=== PATIENT | male | born 1935 | race Caucasian/White ===

== ENCOUNTER 2016-04-24 20:54 | Observation (INO) | payer MEDICARE, MEDICAID ==
[2016-04-24] MEDS ORDERED: Lidocaine 2% JELLY* 6 ML JELLY TOPICAL ONE (21:42)
[2016-04-24 21:54] LABS: Hematocrit 38 % (42-52); Hemoglobin 12.6 g/dl (14.0-18.0); Mean Corpuscular HGB Conc 34 g/dl (31-36); Mean Corpuscular Hemoglobin 31 pg (27-31); Mean Corpuscular Volume 92 fL (80-94); Mean Platelet Volume 8 um3 (7.4-10.4); Red Blood Count 4.08 10^6/ul (4.0-5.4); Red Cell Distribution Width 16 % (10.5-15); White Blood Count 9.6 10^3/ul (3.5-10.8)
[2016-04-24] MEDS ORDERED: oxyCODONE/Acetamin 5/325 MG* TAB PO ONE (22:01)
[2016-04-24 22:05] LABS: Urine Bilirubin Negative (Negative); Urine Glucose Negative (Negative); Urine Nitrite Negative (Negative)
[2016-04-24 22:06] LABS: Albumin 4.2 g/dL (3.2-5.2); BUN/Creatinine Ratio 18.6 (8-20); Calcium 10.4 mg/dL (8.6-10.3); EGFR African American 76.8 (>60); EGFR Non-African American 59.7 (>60); Globulin 3.3 g/dL (2-4); Potassium 3.5 mmol/L (3.5-5.0); Total Bilirubin 0.6 mg/dL (0.2-1.0); Total Protein 7.5 g/dL (6.4-8.9)
[2016-04-24] MEDS ORDERED: NS 0.9% 1000 ML* 1,000 ML IV ONE (22:19)
[2016-04-25] MEDS ORDERED: Ondansetron INJ* 2 MG/ML VIAL IV ONE (01:12)
[2016-04-25] MEDS ORDERED: Atenolol TAB* 50 MG PO ONE (01:13)
[2016-04-25 01:14] LABS: Calcium 9.5 mg/dL (8.6-10.3); EGFR African American 87.9 (>60); EGFR Non-African American 68.3 (>60); Potassium 4.2 mmol/L (3.5-5.0)
[2016-04-25] MEDS ORDERED: VENTOLIN INH PRN (02:49)
[2016-04-25] MEDS: oxyCODONE TAB* 5 MG TAB PO PRN ×2 (04:02→11:18)
[2016-04-25] MEDS: Heparin VIAL(*) 5000 UNITS/ML VIAL (FIVE THOUSAND) SUBCUT SCH ×3 (05:33→21:50)
[2016-04-25] MEDS: Atenolol TAB* 50 MG PO SCH (08:28)
[2016-04-25] MEDS: Aspirin EC Low Dose* 81 MG TAB.EC PO SCH (08:28)
--- NOTE | 2016-04-25 09:34 | HP ---
HISTORY AND PHYSICAL: DATE OF ADMISSION: 04/25/16 CHIEF COMPLAINT: Abdominal pain and inability to urinate. HISTORY OF PRESENT ILLNESS: The patient is a 80-year-old gentleman who said all of a sudden tonight he felt he had to urinate and could not, and the area of his abdomen in the suprapubic area was quite uncomfortable. The pain was significant, so he came to the ER. He has taken no new medications before this. He can't remember the last time he urinated; it may have been this morning. He does note his stream has been weaker and weaker lately. He has some chills, but no fever. He does have to get up twice at night to urinate, but takes nothing for an enlarged prostate. In the ED, the patient was cathed and found to have 800 cc of urine in his bladder. He was also found to have a lactic acidosis with lactic acid of over 5. 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 CURRENT MEDICATIONS: 1. Atenolol 50 mg daily. 2. Aspirin 81 mg daily. 3. Oxycodone 5 mg every 6 hours as needed. 4. Ventolin inhaler as directed. ALLERGIES: He has no known drug allergies. FAMILY HISTORY: Reviewed and noncontributory. SOCIAL HISTORY: Smoked tobacco for 30 years, quit many months ago. Only occasional alcohol. No recreational drug use. 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 He was 6 times, has several children, but does not know how many. His sister, Dara Prince, [phone], is his healthcare proxy. REVIEW OF SYSTEMS: A 14-point review of systems was completed with the patient ; all pertinent positives and negatives in the history of present illness otherwise is negative. PHYSICAL EXAMINATION GENERAL: A pleasant gentleman lying in bed. VITAL SIGNS: Blood pressure is 156/75, pulse ox 96%, respiratory rate 21 breaths per minute, heart rate 96 beats per minute, temperature 98.1 degrees. HEENT: Normocephalic, atraumatic. Pupils equal, round, and reactive to light. Moist mucous membranes. NECK: Supple. No JVD, bruits, palpable thyroid, or lymphadenopathy. CHEST: Clear to auscultation and percussion bilaterally. CARDIOVASCULAR: S1, S2 appreciated. ABDOMEN: Positive bowel sounds in all 4 quadrants. Soft, nontender, nondistended. EXTREMITIES: No cyanosis, clubbing, or edema. +2 peripheral pulses bilaterally. NEURO: Alert and oriented x3. Moves all extremities. SKIN: No distinct rashes or abnormalities. DIAGNOSTIC STUDIES/LAB DATA: White count 9.6, hemoglobin 12.6, hematocrit 38, platelets 291. Sodium 137, potassium 3.5, chloride 100, CO2 21, BUN 22, creatinine 1.18, glucose 98. Lactic acid 5.3, repeat is 3.4. Urinalysis is negative. ASSESSMENT AND PLAN: 1. Urinary retention: I suspect this is from benign prostatic hypertrophy. I will get a renal ultrasound to make sure there is no hydronephrosis or anything to be overly concerned about, but he may benefit from urology consult. I have started him on Flomax. We will continue his Walters. May be able to be discharged tomorrow with his Walters catheter in place and followup with urology as an outpatient. 2. Hypertension: Borderline control. Continue atenolol, and maybe adjust medications accordingly. 3. Chronic pain: Continue oxycodone. 4. Fluids, Electrolytes, Nutrition: Regular diet. 5. Deep venous thrombosis: Heparin subcu. 6. The patient is a full code. TIME SPENT: Over 75 minutes were spent on this H and P, more than 40 minutes of which were spent in direct [id number] contact with the patient in evaluation, physical exam, and counseling and coordination of care. CC: Dr. Maier * [id number]/[facility] #: [id number] MTDD
--- NOTE | 2016-04-25 10:52 | RAD ---
HISTORY: Urinary retention COMPARISONS: None TECHNIQUE: Multiple transverse and longitudinal ultrasound images were obtained of the kidneys using grayscale and color Doppler imaging. FINDINGS: RIGHT KIDNEY: The right kidney is normal in shape, size, contour, and echogenicity. There is no hydronephrosis or nephrolithiasis. The right kidney measures 9.8 x 4.8 x 5 cm. LEFT KIDNEY: The left kidney is normal in shape, size, contour, and echogenicity. There is no hydronephrosis or nephrolithiasis. The left kidney measures 10.1 x 5.3 x 4.5 cm. BLADDER: No images are submitted of the bladder. AORTA AND IVC: No images are submitted of the vasculature. RETROPERITONEUM: Unremarkable. OTHER: None. IMPRESSION: NO HYDRONEPHROSIS OR NEPHROLITHIASIS.
[2016-04-25] MEDS ORDERED: NS 0.9% 1000 ML* 1,000 ML IV ONE (16:59)
[2016-04-25] MEDS ORDERED: Calcium Carbonate CHEW TAB* 500 MG (TUMS) PO PRN (19:00)
[2016-04-25] MEDS ORDERED: Tamsulosin CAP* 0.4 MG PO SCH (21:00)
[2016-04-25] MEDS ORDERED: Ondansetron INJ* 2 MG/ML VIAL IV PRN (23:10)
[2016-04-25] MEDS ORDERED: Albuterol HFA INHALER* 8 gm MDI INH PRN (23:13)
[2016-04-26] MEDS: Heparin VIAL(*) 5000 UNITS/ML VIAL (FIVE THOUSAND) SUBCUT SCH (06:03)
[2016-04-26 07:17] LABS: BUN/Creatinine Ratio 20.6 (8-20); Calcium 8.5 mg/dL (8.6-10.3); EGFR African American 71.2 (>60); EGFR Non-African American 55.4 (>60); Potassium 3.8 mmol/L (3.5-5.0)
[2016-04-26 07:54] VITALS: BP 111/45
[2016-04-26] MEDS: Atenolol TAB* 50 MG PO SCH (08:44)
[2016-04-26] MEDS: oxyCODONE TAB* 5 MG TAB PO PRN (08:44)
[2016-04-26] MEDS: Aspirin EC Low Dose* 81 MG TAB.EC PO SCH (08:44)
--- NOTE | 2016-04-26 09:10 | PN ---
Hospitalist Progress Note . HOSPITALIST DISCHARGE NOTE: See dc instructions and summary by me. Patient stable for dc dc instructions reviewed with the patient at the bedside. DC patient home today.
--- NOTE | 2016-04-28 05:56 | DS ---
DISCHARGE SUMMARY: DATE OF ADMISSION: 04/25/16 DATE OF DISCHARGE: 04/26/16 STATUS DURING HOSPITALIZATION: Observation. PRIMARY CARE PROVIDER: Dr. Sameer Maier. DISCHARGE INSTRUCTIONS: With followup appointment 05/01/16 at 11:30 a.m. and also follow up with Dr. Arturo Albert or Dr. Robert Lee, on 04/28/16 , as communicated to the the patient. PRINCIPAL DISCHARGE DIAGNOSES: Urinary retention with the inability to urinate with nearly 2 L urinary retention and requirement for indwelling Walters catheter as well as constipation. SECONDARY DIAGNOSES: 1. History of right cheek melanoma. 2. Hypertension. 3. Chronic obstructive pulmonary disease. 4. Right tear duct cancer. DISCHARGE MEDICATION REGIMEN: 1. Flomax 0.4 mg by mouth at bedtime (rx given) 2. Docusate 100 mg by mouth twice daily as needed for constipation (rx given). 3. Senokot 1 tab by mouth once daily at bedtime (rx given) 4. Atenolol 50 mg by mouth daily. 5. Aspirin 81 mg by mouth daily. 6. Oxycodone/Roxicodone 5 mg by mouth every 6 hours as needed, not to exceed 20 mg per day. 7. Ventolin 2 puffs every 4 to 6 hours as needed for shortness of breath. HISTORY OF PRESENT ILLNESS AND HOSPITAL COURSE: Please see the H and P by Dr. Bryce Bauer on 04/25/16. In brief, Mr. Prince is a 80-year-old gentleman who felt the urge to urinate but could not and in the area below his belly button felt pain and a swollen bladder. The patient came to the emergency room and could not report the last time he urinated. He did note that his urine stream was weaker and weaker lately. The patient was cath'd and had well over 1000 mL of urine returned and within the first hour from placement, drained a total of 1650 mL. The patient continued to have abdominal pain and he was placed on observation status after his initial lactic acid was 5.3. His initial anion gap was 1.6 and his creatinine was 1.18. The patient was mildly hypercalcemic at 10.4 and there was concern that he might experience postobstructive diuresis , such that his in's and out's needed to be carefully measured. The patient was placed on observation status. He only made normal amounts of urine that were maintainable with oral intake. The patient only complained additionally of constipation and so a laxative and a stool softener were prescribed. The patient is being discharged with an indwelling Walters for urology followup and likely office urodynamic testing. The patient is being discharged in stable condition on 04/26/16 with a urology followup on 04/28/16, and primary care followup on the . Again, the patient was started on Flomax and this was prescribed in addition to his stool softener and laxative. He was given return to ED instructions, if he experiences any difficulty with his Walters catheter or any other concerning signs or symptoms, then he is to come back and be re-evaluated. He said he would comply with that instruction. TIME SPENT: Total time taken to discharge Mr. Prince was 40 minutes. Greater than half that time spent giving him information about Walters catheterization and the likely course of events with his urinary obstruction and need for urology followup. CONDITION AT DISCHARGE: Stable. [id number]/[facility] #: [id number] PREETI
--- NOTE | 2016-05-10 20:39 | ED ---
Arlet Canseco Anna, scribed for Garry De Jesus MD on 04/24/16 at 2204 . GI/ HPI - HPI Summary HPI Summary: Patient is a 80 y/o male coming to [facility] presenting with an inability to urinate. He previously had abdominal pain, but this was alleviated following the use of a catheter in the ED. He has had no BM for 3 days, which is baseline for him on oxycodone, which he takes for his shoulder. Before his catheterization, he last urinated this morning. He describes the severity of his pain prior to the catheterization as 10/10. This has since resolved. He has SOB at baseline. Denies CP. He denies knowledge of prostate problems. He has never seen a urologist. - History of Current Complaint Chief Complaint: EDAbdPain Time Seen by Provider: 04/24/16 21:10 Stated Complaint: ABD PAIN Hx Obtained From: Patient Pain Intensity: 10 - Additional Pertinent History Primary Care Physician: HANNAH - Allergy/Home Medications Allergies/Adverse Reactions: Allergies Allergy/AdvReac Type Severity Reaction Status Date / Time No Known Allergies Allergy Verified 04/24/16 21:16 Home Medications: Home Medications Ventolin HFA Inhaler* INH DAILY 04/24/16 [History] PMH/Surg Hx/FS Hx/Imm Hx Cardiovascular History: Reports: Hx Hypertension Denies: Hx Pacemaker/ICD Respiratory History: Reports: Hx Chronic Obstructive Pulmonary Disease (COPD) Musculoskeletal History: Reports: Hx Orthopedic Injury - right rotator cuff tear Sensory History: Reports: Hx Hearing Problem - ANIAK Denies: Hx Hearing Aid Psychiatric History: Denies: Hx Panic Disorder - Cancer History Cancer Type, 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 - Surgical History Surgery Procedure, Year, and Place: DOUBLE HERNIA; MELONOMA-FACIAL Hx Anesthesia Reactions: No - Immunization History Date of Tetanus Vaccine: unk Date of Influenza Vaccine: unk Infectious Disease History: No Infectious Disease History: Denies: Traveled Outside the [place] in Last 30 Days - Family History Known Family History: Negative: Diabetes - Social History Occupation: Retired Alcohol Use: Daily Alcohol Amount: 1 daily Substance Use Type: Reports: None, Prescribed Substance Use Comment - Amount & Last Used: BID x long time Smoking Status (MU): Former Smoker Type: Cigarettes Amount Used/How Often: 1/2 PPD Length of Time of Smoking/Using Tobacco: 55 YEARS Have You Smoked in the Last Year: No Review of Systems Negative: Chest Pain Positive: Shortness Of Breath - baseline Positive: Abdominal Pain - resolved. Negative: Vomiting, Nausea Genitourinary: Other - Inability to urinate. Positive: other - Constipation, baseline. Negative: dysuria, hematuria Negative: Myalgia, Edema Negative: Rash Neurological: Other - Denies dizziness All Other Systems Reviewed And Are Negative: Yes Physical Exam - Summary Physical Exam Summary: Constitutional: Well-developed, Well-nourished, Alert. (-) Distressed Skin: Warm, Dry HENT: Normocephalic; Atraumatic Eyes: Conjunctiva normal Neck: Musculoskeletal ROM normal neck. (-) JVD, (-) Stridor, (-) Tracheal deviation Cardio: Rhythm regular, rate normal, Heart sounds normal; Intact distal pulses; The pedal pulses are 2+ and symmetric. Radial pulses are 2+ and symmetric. ~(-) Murmur Pulmonary/Chest wall: Effort normal. (-) Respiratory distress, (-) Wheezes, (-) Rales Abd: Soft, (-) Tenderness, ~(-) Distension, (-) Guarding, (-) Rebound Musculoskeletal: (-) Edema Lymph: (-) Cervical adenopathy Neuro: Alert, Oriented x3. Lower extremity strength intact. Distal sensation intact. Psych: Mood and affect Normal Triage Information Reviewed: Yes Vital Signs On Initial Exam: Initial Vitals Temp Pulse Resp BP Pulse Ox 97.3 F 95 16 208/113 99 04/24/16 21:10 04/24/16 21:10 04/24/16 21:10 04/24/16 21:10 04/24/16 21:10 Vital Signs Reviewed: Yes - Christi Coma Scale Coma Scale Total: 15 Diagnostics - Vital Signs Vital Signs Temp Pulse Resp BP Pulse Ox 04/24/16 21:10 97.3 F 95 16 208/113 99 - Laboratory Lab Results: Lab Results 04/24/16 Range/Units 21:15 WBC 9.6 (3.5-10.8) 10^3/ul RBC 4.08 (4.0-5.4) 10^6/ul Hgb 12.6 L (14.0-18.0) g/dl Hct 38 L (42-52) % MCV 92 (80-94) fL MCH 31 (27-31) pg MCHC 34 (31-36) g/dl RDW 16 H (10.5-15) % Plt Count 291 (150-450) 10^3/ul MPV 8 (7.4-10.4) um3 Neut % (Auto) 83.4 H (38-83) % Lymph % (Auto) 10.4 L (25-47) % [place] % (Auto) 4.6 (1-9) % Eos % (Auto) 0.7 (0-6) % Baso % (Auto) 0.9 (0-2) % Absolute Neuts (auto) 8.0 H (1.5-7.7) 10^3/ul Absolute Lymphs (auto) 1.0 (1.0-4.8) 10^3/ul Absolute Monos (auto) 0.4 (0-0.8) 10^3/ul Absolute Eos (auto) 0.1 (0-0.6) 10^3/ul Absolute Basos (auto) 0.1 (0-0.2) 10^3/ul Absolute Nucleated RBC 0.01 10^3/ul Nucleated RBC % 0.1 Result Diagrams: 04/24/16 21:15 04/24/16 21:15 Lab Statement: Any lab studies that have been ordered have been reviewed, and results considered in the medical decision making process. Re-Evaluation - Re-Evaluation First Eval Re-Evaluation Time: 01:12 Change: Unchanged Comment: Patient feels nauseous and too sick to go home. GIGU Course/Dx - Course Assessment/Plan: Patient is a 80 y/o male coming to [facility] presenting with an inability to urinate. He previously had abdominal pain, but this was alleviated following the use of a catheter in the ED. He has had no BM for 3 days, which is baseline for him on oxycodone, which he takes for his shoulder. Before his catheterization, he last urinated this morning. He describes the severity of his pain prior to the catheterization as 10/10. This has since resolved. He has SOB at baseline. Denies CP. He denies knowledge of prostate problems. He has never seen a urologist. Labs reveal a lactic acid of 5.3. UA is unremarkable. Repeat lab reveals lactic acid of 3.4. Upon re-evaluation, patient feels nauseous and too sick to go home. Discussed patient with Dr. Bauer, who agrees to admit patient. - Diagnoses Provider Diagnoses: Acute urinary retention, Lactic acidosis, Dehydration, Uncontrolled hypertension - Physician Notifications Discussed Care Of Patient With: Dr. Bauer (hospitalist) at 0115. Agrees to accept patient for admission. Discharge - Discharge Plan Condition: Stable Disposition: ADMITTED TO [facility] Referrals: Saul Acosta MD [Primary Care Provider] - The documentation as recorded by the Arlet matamoros Anna accurately reflects the service I personally performed and the decisions made by me, Garry De Jesus MD.
== END 2016-04-26 12:25 | disposition home or self-care (01) ==
LOC: ED 20:54 → MED 04-25 02:42
PROVIDERS: ADMIT Internal Medicine; ATTEND Internal Medicine
DX: R33.9 Retention of urine, unspecified (principal); K59.00 Constipation, unspecified; G89.29 Other chronic pain; Z85.820 Personal history of malignant melanoma of skin; J44.9 Chronic obstructive pulmonary disease, unspecified; C69.91 Malignant neoplasm of unspecified site of right eye; Z79.899 Other long term (current) drug therapy; Z87.891 Personal history of nicotine dependence
CPT/HCPCS: 36415; 76775; 80048; 80053; 81003; 83605; 83690; 85025; 96361; 96372; 96374; 99285; A9270-GY; G0378; G8978-GP-CH; G8979-GP-CH; G8980-GP-CH; J1644; J2405

== ENCOUNTER 2016-09-03 23:15 | Emergency (ER) | payer MEDICARE, MEDICAID ==
[2016-09-03] MEDS ORDERED: methylPREDNISolone 125 MG* 2 ML VIAL IV ONE (23:20)
[2016-09-03] MEDS ORDERED: NS 0.9% 1000 ML* 1,000 ML IV ONE (23:20)
[2016-09-03] MEDS ORDERED: Albuterol/Ipratropium NEB.SOL* Albuterol 2.5 MG/Ipratropium 0.5 MG 3 ML INH ONE (23:20)
[2016-09-03 23:43] LABS: Hematocrit 40 % (42-52); Hemoglobin 13.4 g/dl (14.0-18.0); Mean Corpuscular HGB Conc 33 g/dl (31-36); Mean Corpuscular Hemoglobin 30 pg (27-31); Mean Corpuscular Volume 91 fL (80-94); Mean Platelet Volume 8 um3 (7.4-10.4); Red Blood Count 4.42 10^6/ul (4.0-5.4); Red Cell Distribution Width 17 % (10.5-15); White Blood Count 8.8 10^3/ul (3.5-10.8)
--- NOTE | 2016-09-03 23:49 | ED ---
West Canseco Rebecca, scribed for Yunior Yarbrough MD on 09/03/16 at 2321 . Shortness of Breath - HPI Summary HPI Summary: Pt is a 80 y/o M BIBA who presents to ED c/o acute on chronic SOB. SOB is characterized as moderate dyspnea at rest and worsened yesterday. Sx aggravated and alleviated by nothing. Pt reports he ran out of his albuterol inhaler. PMHx COPD. SHx former smoker. Is unsure of when he was last seen by his PCP. - History of Current Complaint Chief Complaint: EDShortnessOfBreath Hx Obtained From: Patient Onset/Duration: Still Present, Worse Since - Yesterday Current Severity: Moderate Dyspnea At: Rest Aggrevating Factors: Nothing Alleviating Factors: Nothing Associated Signs & Symptoms: Negative - Allergy/Home Medications Allergies/Adverse Reactions: Allergies Allergy/AdvReac Type Severity Reaction Status Date / Time No Known Allergies Allergy Verified 04/24/16 21:16 PMH/Surg Hx/FS Hx/Imm Hx Cardiovascular History: Reports: Hx Hypertension Denies: Hx Pacemaker/ICD Respiratory History: Reports: Hx Chronic Obstructive Pulmonary Disease (COPD) Musculoskeletal History: Reports: Hx Orthopedic Injury - right rotator cuff tear Sensory History: Reports: Hx Hearing Problem - TYONEK Denies: Hx Hearing Aid Psychiatric History: Denies: Hx Panic Disorder - Cancer History Cancer Type, 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 - Surgical History Surgery Procedure, Year, and Place: DOUBLE HERNIA; MELONOMA-FACIAL Hx Anesthesia Reactions: No - Immunization History Date of Tetanus Vaccine: unk Date of Influenza Vaccine: unk - Family History Known Family History: Negative: Diabetes - Social History Alcohol Use: Daily Alcohol Amount: 1 daily Substance Use Type: Reports: None, Prescribed Substance Use Comment - Amount & Last Used: BID x long time Smoking Status (MU): Former Smoker Type: Cigarettes Amount Used/How Often: 1/2 PPD Length of Time of Smoking/Using Tobacco: 55 YEARS Have You Smoked in the Last Year: No Review of Systems Negative: Fever Positive: Shortness Of Breath - acute on chronic All Other Systems Reviewed And Are Negative: Yes Physical Exam Triage Information Reviewed: Yes Vital Signs On Initial Exam: Initial Vitals Temp Pulse Resp BP Pulse Ox 97.6 F 110 20 148/98 97 09/03/16 23:17 09/03/16 23:17 09/03/16 23:17 09/03/16 23:17 09/03/16 23:17 Vital Signs Reviewed: Yes Appearance: Positive: No Pain Distress, Thin Skin: Positive: Warm Head/Face: Positive: Normal Head/Face Inspection Eyes: Positive: MIKE ENT: Positive: Hearing grossly normal Neck: Positive: Supple Respiratory/Lung Sounds: Positive: Decreased Breath Sounds, Wheezes - scattered bilat exp wheezes with prolonged expiration Cardiovascular: Positive: RRR Abdomen Description: Positive: Nontender, Soft Bowel Sounds: Positive: Present Musculoskeletal: Positive: Strength/ROM Intact Neurological: Positive: Alert, Oriented to Person Place, Time Psychiatric: Positive: Affect/Mood Appropriate Diagnostics - Vital Signs Vital Signs Temp Pulse Resp BP Pulse Ox 09/03/16 23:26 111 19 99 09/03/16 23:17 97.6 F 110 20 148/98 97 - Laboratory Lab Results: Lab Results 09/03/16 Range/Units 11:27 WBC 8.8 (3.5-10.8) 10^3/ul RBC 4.42 (4.0-5.4) 10^6/ul Hgb 13.4 L (14.0-18.0) g/dl Hct 40 L (42-52) % MCV 91 (80-94) fL MCH 30 (27-31) pg MCHC 33 (31-36) g/dl RDW 17 H (10.5-15) % Plt Count 222 (150-450) 10^3/ul MPV 8 (7.4-10.4) um3 Neut % (Auto) 69.5 (38-83) % Lymph % (Auto) 14.5 L (25-47) % Castro % (Auto) 6.3 (1-9) % Eos % (Auto) 8.8 H (0-6) % Baso % (Auto) 0.9 (0-2) % Absolute Neuts (auto) 6.1 (1.5-7.7) 10^3/ul Absolute Lymphs (auto) 1.3 (1.0-4.8) 10^3/ul Absolute Monos (auto) 0.6 (0-0.8) 10^3/ul Absolute Eos (auto) 0.8 H (0-0.6) 10^3/ul Absolute Basos (auto) 0.1 (0-0.2) 10^3/ul Absolute Nucleated RBC 0 10^3/ul Nucleated RBC % 0 Result Diagrams: 09/03/16 11:27 09/03/16 11:27 Lab Statement: Any lab studies that have been ordered have been reviewed, and results considered in the medical decision making process. - Radiology CXR Xray Interpretation: No Acute Changes Radiology Interpretation Completed By: ED Physician - EKG 2275 Cardiac Rate: Tachycardia - 104 bpm EKG Rhythm: Sinus Tachycardia EKG Interpretation: No STEMI Re-Evaluation - Re-Evaluation First Eval Re-Evaluation Time: 01:16 Change: Improved Comment: Discussed D/C plan with the pt. Course/Dx - Course Assessment/Plan: Pt is a 80 y/o M BIBA who presents to ED c/o acute on chronic SOB, characterized as dyspnea at rest, that worsened yesterday. Pt reports he ran out of his albuterol inhaler. PMHx COPD. SHx former smoker. EKG reveals isnus tachycardia with no STEMI. CXR reveals no acute findings. Pt will be D/C to home with Dx of COPD exacerbation. He understands and agrees. - Diagnoses Provider Diagnoses: COPD exacerbation Discharge - Discharge Plan Condition: Stable Disposition: HOME Prescriptions: predniSONE TAB* [Deltasone TAB*] 40 mg PO DAILY #8 tab Patient Education Materials: COPD (Chronic Obstructive Pulmonary Disease) (ED) Referrals: Sameer Maier MD [Primary Care Provider] - 3 Days The documentation as recorded by the West matamoros Rebecca accurately reflects the service I personally performed and the decisions made by me, Yunior Yarbrough MD.
[2016-09-03 23:55] LABS: Albumin 4.2 g/dL (3.2-5.2); BUN/Creatinine Ratio 26.7 (8-20); Calcium 9.3 mg/dL (8.6-10.3); EGFR African American 65.7 (>60); EGFR Non-African American 51.1 (>60); Globulin 3.4 g/dL (2-4); Total Bilirubin 0.4 mg/dL (0.2-1.0); Total Protein 7.6 g/dL (6.4-8.9)
[2016-09-04 01:18] VITALS: BP 152/84
[2016-09-04] MEDS ORDERED: Albuterol HFA INHALER* 8 gm MDI INH ONE ×2 (01:24→01:26)
--- NOTE | 2016-09-04 07:25 | RAD ---
INDICATION: Shortness of breath. COMPARISON: Comparison is made with prior chest x-ray studies from October 19, 2012 and May 27, 2015. TECHNIQUE: Dual-energy PA and lateral views of the chest were obtained. FINDINGS: The heart is within normal limits in size. Mediastinal and hilar contours appear within normal limits. The lungs are hyperinflated. There are small nodular densities which project above both lung bases which are unchanged from the exam from 2012 and likely represent nipple shadows. There is also a small calcified nodule which projects at the right lung base suggestive of old granulomatous disease which is also unchanged. The lungs are otherwise clear. No pleural effusion is seen. There is pectus excavatum deformity. IMPRESSION: FINDINGS CONSISTENT WITH COPD AND OLD GRANULOMATOUS DISEASE, NO EVIDENCE FOR ACUTE FINDING.
== END 2016-09-04 13:34 | disposition home or self-care (01) ==
LOC: ED 23:15
DX: R06.02 Shortness of breath (principal); Z86.79 Personal history of other diseases of the circulatory system; Z87.891 Personal history of nicotine dependence
CPT/HCPCS: 36415; 71020; 80053; 83605; 85025; 93005; 94640; 99283; A9270-GY; J2930

== ENCOUNTER 2016-09-05 17:49 | Inpatient (IN) | payer MEDICARE, MEDICAID ==
[2016-09-05] MEDS ORDERED: Acetaminophen TAB* 325 MG PO ONE (18:09)
[2016-09-05] MEDS ORDERED: cefTRIAXone(*) 1 GM in NS 0.9% 50 ML* 50 ML IVPB ONE (18:20)
[2016-09-05] MEDS ORDERED: Azithromycin IV(*) 500 MG in NS 0.9% 250 ML* 250 ML IVPB ONE (18:20)
[2016-09-05 18:30] LABS: Hematocrit 36 % (42-52); Hemoglobin 11.7 g/dl (14.0-18.0); Mean Corpuscular HGB Conc 33 g/dl (31-36); Mean Corpuscular Hemoglobin 30 pg (27-31); Mean Corpuscular Volume 92 fL (80-94); Mean Platelet Volume 8 um3 (7.4-10.4); Red Blood Count 3.88 10^6/ul (4.0-5.4); Red Cell Distribution Width 16 % (10.5-15); White Blood Count 12.3 10^3/ul (3.5-10.8)
[2016-09-05] MEDS: NS 0.9% 1000 ML* 2,000 ML IV ONE (18:35)
[2016-09-05 18:47] LABS: Albumin 3.5 g/dL (3.2-5.2); BUN/Creatinine Ratio 29.7 (8-20); C Reactive Protein 15.78 mg/L (< 5.00); Calcium 8.6 mg/dL (8.6-10.3); EGFR African American 103.6 (>60); EGFR Non-African American 80.6 (>60); Globulin 2.8 g/dL (2-4); Potassium 3.5 mmol/L (3.5-5.0); Total Bilirubin 0.5 mg/dL (0.2-1.0); Total Protein 6.3 g/dL (6.4-8.9)
[2016-09-05 18:48] LABS: Troponin I 0.02 ng/mL (<0.04)
--- NOTE | 2016-09-05 18:55 | RAD ---
Indication: Recent onset shortness of breath/chest tightness. Chronic obstructive pulmonary disease. Comparison: September 03, 2016 Technique: Upright AP 1833 hours Report: Elevated lung volumes and rarefaction of the interstitial markings. Airspace consolidation at the medial RIGHT lower lung zone which may involve the RIGHT middle lobe or RIGHT lower lobe. Negative for pleural effusion or pneumothorax. The heart, pulmonary vasculature, and mediastinal contours are unremarkable. IMPRESSION: 1. Airspace consolidation at the medial RIGHT lower lung zone most consistent with pneumonia given absence of volume loss to favor atelectasis. 2. Stigmata of chronic obstructive pulmonary disease and emphysema.
[2016-09-05] MEDS ORDERED: methylPREDNISolone 125 MG* 2 ML VIAL IV ONE (19:33)
[2016-09-05] MEDS ORDERED: Albuterol 2.5 MG/3 ML NEB.SOL* (0.083%) INH PRN (19:33)
[2016-09-05] MEDS ORDERED: oxyCODONE TAB* 5 MG TAB PO PRN (19:37)
[2016-09-05] MEDS ORDERED: NS 0.9% 1000 ML* 1,000 ML IV SCH (19:45)
[2016-09-05] MEDS: Albuterol/Ipratropium NEB.SOL* Albuterol 2.5 MG/Ipratropium 0.5 MG 3 ML INH SCH ×2 (19:52→23:24)
[2016-09-05 20:10] LABS: Urine Bacteria Absent (Absent); Urine Bilirubin Negative (Negative); Urine Glucose Negative (Negative); Urine Nitrite Negative (Negative)
--- NOTE | 2016-09-05 20:12 | ED ---
Cortney Canseco Alok, scribed for Paul Rapp MD on 09/05/16 at 1827 . Shortness of Breath - HPI Summary HPI Summary: 80M presents to the ED BIBA with SOB and productive cough for the last 3-4 days as well as a fever since this afternoon. Pt was given a duo nebulizer by EMS [employer]. Pt also notes PORTER. Pt denies chills, vomit, or abd pain. Pt denies difficulty urinating or rash. PMHx includes COPD. Pt is a former tobacco smoker and drinks ETOH daily. - History of Current Complaint Chief Complaint: EDShortnessOfBreath Time Seen by Provider: 09/05/16 18:06 Hx Obtained From: Patient Onset/Duration: Lasting Days, Still Present, Worse Since - Today Timing: Constant Current Severity: Moderate Dyspnea At: Rest Aggrevating Factors: Nothing Alleviating Factors: Nothing Associated Signs & Symptoms: Cough (Productive), Fever - Allergy/Home Medications Allergies/Adverse Reactions: Allergies Allergy/AdvReac Type Severity Reaction Status Date / Time No Known Allergies Allergy Verified 04/24/16 21:16 Home Medications: Home Medications Albuterol Sulfate [Proair Respiclick] 2 puff INH QID PRN 09/05/16 [History Confirmed 09/05/16] Aspirin EC Low Dose* [Ecotrin EC Low Dose 81 MG*] 81 mg PO DAILY 09/05/16 [ History Confirmed 09/05/16] Tamsulosin CAP* [Flomax CAP*] 0.4 mg PO DAILY 09/05/16 [History Confirmed ] Tiotropium CAP.INH* [Spiriva CAP.INH*] 1 cap.inh INH DAILY 09/05/16 [History Confirmed 09/05/16] oxyCODONE TAB* [Roxycodone TAB 5 mg*] 5 - 10 mg PO Q8HR PRN MDD 30 mg 09/05/16 [ History Confirmed 09/05/16] PMH/Surg Hx/FS Hx/Imm Hx Cardiovascular History: Reports: Hx Hypertension Denies: Hx Pacemaker/ICD Respiratory History: Reports: Hx Chronic Obstructive Pulmonary Disease (COPD) Musculoskeletal History: Reports: Hx Orthopedic Injury - right rotator cuff tear Sensory History: Reports: Hx Hearing Problem - [place] Denies: Hx Hearing Aid Psychiatric History: Denies: Hx Panic Disorder - Cancer History Cancer Type, 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 - Surgical History Surgery Procedure, Year, and Place: DOUBLE HERNIA; MELONOMA-FACIAL Hx Anesthesia Reactions: No - Immunization History Date of Tetanus Vaccine: unk Date of Influenza Vaccine: unk Infectious Disease History: No Infectious Disease History: Denies: Traveled Outside the [place] in Last 30 Days - Family History Known Family History: Negative: Diabetes - Social History Occupation: Retired Alcohol Use: Daily Alcohol Amount: 1 daily Substance Use Type: Reports: None, Prescribed Substance Use Comment - Amount & Last Used: BID x long time Smoking Status (MU): Former Smoker Type: Cigarettes Amount Used/How Often: 1/2 PPD Length of Time of Smoking/Using Tobacco: 55 YEARS Have You Smoked in the Last Year: No Review of Systems Positive: Fever. Negative: Chills Positive: Shortness Of Breath, Cough Negative: Abdominal Pain, Vomiting Genitourinary: Other - Negative: Difficulty urinating Negative: Rash Positive: Headache All Other Systems Reviewed And Are Negative: Yes Physical Exam - Summary Physical Exam Summary: The patient is ill-appearing and cachectic. The skin is warm and dry and skin color pale. HEENT: The head is normocephalic and atraumatic. The pupils are equal and reactive. The conjunctivae are clear and without drainage. Nares are patent and without drainage. Mouth reveals dry mucous membranes and the throat is without erythema and exudate. Neck is supple with full range of motion and non-tender. There are no carotid bruits. There is no neck vein distension. Respiratory: Chest is non-tender. Left lung base rales with decreased breath sounds throughout. Cardiovascular: Heart rate is fast and regular. There is no murmur or rub auscultated. There is no peripheral edema and pulses are symmetrical and equal. Abdomen: The abdomen is soft and non-tender. There are normal bowel sounds heard in all four quadrants and there is no organomegaly palpated. Musculoskeletal: There is no back pain noted. Extremities are non-tender with full range of motion. Capillary refill 3 seconds. There is no peripheral edema or calf tenderness elicited. Neurological: Patient is alert and oriented to person, place and time. The patient has symmetrical motor strength in all four extremities. Cranial nerves are grossly intact. Deep tendon reflexes are symmetrical and equal in all four extremities. Psychiatric: The patient has an appropriate affect and does not exhibit any anxiety or depression. Triage Information Reviewed: Yes Vital Signs On Initial Exam: Initial Vitals Temp Pulse Resp BP Pulse Ox 102.7 F 130 22 160/93 94 09/05/16 17:51 09/05/16 17:51 09/05/16 17:51 09/05/16 17:51 09/05/16 17:51 Vital Signs Reviewed: Yes Diagnostics - Vital Signs Vital Signs Temp Pulse Resp BP Pulse Ox 09/05/16 17:51 102.7 F 130 22 160/93 94 - Laboratory Lab Results: Lab Results 09/05/16 09/05/16 09/05/16 Range/Units 18:20 18:20 18:20 WBC 12.3 H (3.5-10.8) 10^3/ul RBC 3.88 L (4.0-5.4) 10^6/ul Hgb 11.7 L (14.0-18.0) g/dl Hct 36 L (42-52) % MCV 92 (80-94) fL MCH 30 (27-31) pg MCHC 33 (31-36) g/dl RDW 16 H (10.5-15) % Plt Count 189 (150-450) 10^3/ul MPV 8 (7.4-10.4) um3 Neut % (Auto) 88.9 H (38-83) % Lymph % (Auto) 4.7 L (25-47) % [place] % (Auto) 3.7 (1-9) % Eos % (Auto) 2.4 (0-6) % Baso % (Auto) 0.3 (0-2) % Absolute Neuts (auto) 10.9 H (1.5-7.7) 10^3/ul Absolute Lymphs (auto) 0.6 L (1.0-4.8) 10^3/ul Absolute Monos (auto) 0.5 (0-0.8) 10^3/ul Absolute Eos (auto) 0.3 (0-0.6) 10^3/ul Absolute Basos (auto) 0 (0-0.2) 10^3/ul Absolute Nucleated RBC 0.01 10^3/ul Nucleated RBC % 0.1 INR (Anticoag Therapy) 0.86 L (0.89-1.11) APTT 25.6 L (26.0-36.3) seconds Sodium 139 (133-145) mmol/L Potassium 3.5 (3.5-5.0) mmol/L Chloride 105 (101-111) mmol/L Carbon Dioxide 25 (22-32) mmol/L Anion Gap 9 (2-11) mmol/L BUN 27 H (6-24) mg/dL Creatinine 0.91 (0.67-1.17) mg/dL Est GFR ( Amer) 103.6 (>60) Est GFR (Non-Af Amer) 80.6 (>60) BUN/Creatinine Ratio 29.7 H (8-20) Glucose 85 (70-100) mg/dL Lactic Acid (0.5-2.0) mmol/L Calcium 8.6 (8.6-10.3) mg/dL Total Bilirubin 0.50 (0.2-1.0) mg/dL AST 20 (13-39) U/L ALT 9 (7-52) U/L Alkaline Phosphatase 49 (34-104) U/L Troponin I 0.02 (<0.04) ng/mL C-Reactive Protein 15.78 H (< 5.00) mg/L Total Protein 6.3 L (6.4-8.9) g/dL Albumin 3.5 (3.2-5.2) g/dL Globulin 2.8 (2-4) g/dL Albumin/Globulin Ratio 1.3 (1-3) 09/05/ Range/Units 18:20 WBC (3.5-10.8) 10^3/ul RBC (4.0-5.4) 10^6/ul Hgb (14.0-18.0) g/dl Hct (42-52) % MCV (80-94) fL MCH (27-31) pg MCHC (31-36) g/dl RDW (10.5-15) % Plt Count (150-450) 10^3/ul MPV (7.4-10.4) um3 Neut % (Auto) (38-83) % Lymph % (Auto) (25-47) % [place] % (Auto) (1-9) % Eos % (Auto) (0-6) % Baso % (Auto) (0-2) % Absolute Neuts (auto) (1.5-7.7) 10^3/ul Absolute Lymphs (auto) (1.0-4.8) 10^3/ul Absolute Monos (auto) (0-0.8) 10^3/ul Absolute Eos (auto) (0-0.6) 10^3/ul Absolute Basos (auto) (0-0.2) 10^3/ul Absolute Nucleated RBC 10^3/ul Nucleated RBC % INR (Anticoag Therapy) (0.89-1.11) APTT (26.0-36.3) seconds Sodium (133-145) mmol/L Potassium (3.5-5.0) mmol/L Chloride (101-111) mmol/L Carbon Dioxide (22-32) mmol/L Anion Gap (2-11) mmol/L BUN (6-24) mg/dL Creatinine (0.67-1.17) mg/dL Est GFR ( Amer) (>60) Est GFR (Non-Af Amer) (>60) BUN/Creatinine Ratio (8-20) Glucose (70-100) mg/dL Lactic Acid 2.7 H* (0.5-2.0) mmol/L Calcium (8.6-10.3) mg/dL Total Bilirubin (0.2-1.0) mg/dL AST (13-39) U/L ALT (7-52) U/L Alkaline Phosphatase (34-104) U/L Troponin I (<0.04) ng/mL C-Reactive Protein (< 5.00) mg/L Total Protein (6.4-8.9) g/dL Albumin (3.2-5.2) g/dL Globulin (2-4) g/dL Albumin/Globulin Ratio (1-3) Result Diagrams: 09/05/16 18:20 09/05/16 18:20 Lab Statement: Any lab studies that have been ordered have been reviewed, and results considered in the medical decision making process. - Radiology CXR Xray Interpretation: Positive (See Comments) - IMPRESSION: 1. Airspace consolidation at the medial RIGHT lower lung zone most consistent with pneumonia given absence of volume loss to favor atelectasis. 2. Stigmata of chronic obstructive pulmonary disease and emphysema. Radiology Interpretation Completed By: Radiologist - EKG 2806 Cardiac Rate: Tachycardia - 118 bpm EKG Rhythm: Sinus Tachycardia EKG Interpretation: Poor R-wave progression. Normal axis. Course/Dx - Diagnoses Differential Diagnosis/HQI/PQRI: Positive: CHF, COPD Exacerbation, Pneumonia, Other - sepsis Provider Diagnoses: right lower lung PNA, Sepsis - Physician Notifications Discussed Care of Patient With: Bryce Bauer - Will admit pt to [facility] Time Discussed With Above Provider: 19:54 - Critical Care Time Critical Care Time: 30-74 min - 30 min Discharge - Discharge Plan Condition: Stable Disposition: ADMITTED TO [facility] documentation as recorded by the Cortney matamoros Alok accurately reflects the service I personally performed and the decisions made by Dionte escalera Drew, MD.
[2016-09-05] MEDS: Heparin VIAL(*) 5000 UNITS/ML VIAL (FIVE THOUSAND) SUBCUT SCH (21:04)
[2016-09-05] MEDS: Mometasone/Formoter 200/5 MDI INH SCH (21:07)
[2016-09-06] MEDS: Albuterol/Ipratropium NEB.SOL* Albuterol 2.5 MG/Ipratropium 0.5 MG 3 ML INH SCH ×6 (03:37→23:41)
[2016-09-06] MEDS: methylPREDNISolone 125 MG* 2 ML VIAL IV SCH ×2 (04:25→12:58)
[2016-09-06 05:02] LABS: Hematocrit 32 % (42-52); Hemoglobin 10.7 g/dl (14.0-18.0); Mean Corpuscular HGB Conc 33 g/dl (31-36); Mean Corpuscular Hemoglobin 30 pg (27-31); Mean Corpuscular Volume 91 fL (80-94); Mean Platelet Volume 8 um3 (7.4-10.4); Red Blood Count 3.55 10^6/ul (4.0-5.4); Red Cell Distribution Width 16 % (10.5-15); White Blood Count 12.5 10^3/ul (3.5-10.8)
[2016-09-06 05:21] LABS: BUN/Creatinine Ratio 25.3 (8-20); Calcium 7.8 mg/dL (8.6-10.3); EGFR African American 103.6 (>60); EGFR Non-African American 80.6 (>60); Potassium 3.7 mmol/L (3.5-5.0)
[2016-09-06] MEDS: Heparin VIAL(*) 5000 UNITS/ML VIAL (FIVE THOUSAND) SUBCUT SCH ×3 (07:18→21:57)
[2016-09-06] MEDS: Tamsulosin CAP* 0.4 MG PO SCH (07:43)
[2016-09-06] MEDS: Aspirin EC Low Dose* 81 MG TAB.EC PO SCH (07:43)
[2016-09-06] MEDS: Mometasone/Formoter 200/5 MDI INH SCH ×2 (09:09→20:29)
--- NOTE | 2016-09-06 10:39 | PN ---
Progress Note - Progress Note Date of Service: 09/06/16 SOAP: Subjective: This is a 80 yo white male with PMH COPD with 50 + years pack year smoking, HTN , melanoma of the face that was admitted on 09/05/16 for SOB and productive cough with RLL Pneumonia. He reports today chest pressure has improved but still feeling weak with leukocytosis. Cough is still presents he reports that it is non-productive and still SOB. Denies chills, sweats, palpitations, PORTER, n/v /d/c, he remains afebrile. Albuterol (Ventolin 2.5 Mg/3 Ml Neb.Deborah*) 2.5 mg INH Q2H PRN PRN Reason: SOB/WHEEZING Albuterol/Ipratropium (Duoneb (Albuterol 2.5 Mg/Ipratropium 0.5 Mg)) 1 neb INH Q4H [facility] Last Admin: 09/06/16 09:09 Dose: 1 neb Aspirin (Aspirin Ec Low Dose*) 81 mg PO DAILY [facility] Last Admin: 09/06/16 07:43 Dose: 81 mg Heparin Sodium (Porcine) (Heparin Vial(*)) 5,000 units SUBCUT Q8HR [facility] Last Admin: 09/06/16 07:18 Dose: 5,000 units Sodium Chloride (Ns 0.9% 1000 Ml*) 1,000 mls @ 100 mls/hr IV PER RATE [facility] Last Admin: 09/05/16 20:52 Dose: 100 mls/hr Ceftriaxone Sodium 1,000 mg/ (Sodium Chloride) 50 mls @ 200 mls/hr IVPB Q24H [facility] Azithromycin 500 mg/ Sodium (Chloride) 250 mls @ 250 mls/hr IVPB Q24H [facility] Methylprednisolone Sodium Succinate (Solu-Medrol 125mg *) 60 mg IV Q8H [facility] Last Admin: 09/06/16 04:25 Dose: 60 mg Mometasone Furoate/Formoterol Fumar (Dulera 200/5 Mdi*) 2 puff INH BID [facility] Last Admin: 09/06/16 09:09 Dose: 2 puff Oxycodone HCl (Roxycodone Tab*) 5 mg PO Q8HR PRN PRN Reason: PAIN Tamsulosin HCl (Flomax Cap*) 0.4 mg PO DAILY [facility] Last Admin: 09/06/16 07:43 Dose: 0.4 mg Allergies Allergy/AdvReac Type Severity Reaction Status Date / Time No Known Allergies Allergy Verified 04/24/16 21:16 Objective: Vital Signs: Temp Pulse Resp BP Pulse Ox 97.7 F 94 76 133/72 94 09/06/16 07:17 07 09:26 09/06/16 09:26 09/06/16 07:17 09/06/16 09:26 General: Patient is sitting up in bed, is alert and oreinted X3, elderly white male, that is cooperative with examination. HEENT: Head is atraumatic, normocephalic. Mouth and mucus membranes are dry but without erythema. Lungs: Some coarseness and crackles heard at bases. No wheezes or rhonchi. Heart: RRR, S1 and S2 split heard, no JVD, no murmurs, rubs, or gallops. Abdomen: Bowel sounds are normoactive in all four quadrants. Abdomen is soft and nontender to palpation. Extremities: No edema. Distal pulses are intact and 2+. Neuro: Alert and Oriented X3. WBC 12.5 10^3/ul (3.5-10.8) H 09/06/16 04:42 RBC 3.55 10^6/ul (4.0-5.4) L 09/06/16 04:42 Hgb 10.7 g/dl (14.0-18.0) L 09/06/16 04:42 Hct 32 % (42-52) L 09/06/16 04:42 MCV 91 fL (80-94) 09/06/16 04:42 MCH 30 pg (27-31) 09/06/16 04:42 MCHC 33 g/dl (31-36) 09/06/16 04:42 RDW 16 % (10.5-15) H 09/06/16 04:42 Plt Count 156 10^3/ul (150-450) 09/06/16 04:42 MPV 8 um3 (7.4-10.4) 09/06/16 04:42 Neut % (Auto) 95.8 % (38-83) H 09/06/16 04:42 Lymph % (Auto) 3.0 % (25-47) L 09/06/16 04:42 [place] % (Auto) 1.1 % (1-9) 09/06/16 04:42 Eos % (Auto) 0 % (0-6) 09/06/16 04:42 Baso % (Auto) 0.1 % (0-2) 09/06/16 04:42 Absolute Neuts (auto) 12.0 10^3/ul (1.5-7.7) H 09/06/16 04:42 Absolute Lymphs (auto) 0.4 10^3/ul (1.0-4.8) L 09/06/16 04:42 Absolute Monos (auto) 0.1 10^3/ul (0-0.8) 09/06/16 04:42 Absolute Eos (auto) 0 10^3/ul (0-0.6) 09/06/16 04:42 Absolute Basos (auto) 0 10^3/ul (0-0.2) 09/06/16 04:42 Absolute Nucleated RBC 0 10^3/ul 09/06/16 04:42 Nucleated RBC % 0 09/06/16 04:42 INR (Anticoag Therapy) 0.86 (0.89-1.11) L 09/05/16 18:20 APTT 25.6 seconds (26.0-36.3) L 09/05/16 18:20 Sodium 138 mmol/L (133-145) 09/06/16 04:42 Potassium 3.7 mmol/L (3.5-5.0) 09/06/16 04:42 Chloride 107 mmol/L (101-111) 09/06/16 04:42 Carbon Dioxide 25 mmol/L (22-32) 09/06/16 04:42 Anion Gap 6 mmol/L (2-11) 09/06/16 04:42 BUN 23 mg/dL (6-24) 09/06/16 04:42 Creatinine 0.91 mg/dL (0.67-1.17) 09/06/16 04:42 Est GFR ( Amer) 103.6 (>60) 09/06/16 04:42 Est GFR (Non-Af Amer) 80.6 (>60) 09/06/16 04:42 BUN/Creatinine Ratio 25.3 (8-20) H 09/06/16 04:42 Glucose 171 mg/dL (70-100) H 09/06/16 04:42 Lactic Acid 1.2 mmol/L (0.5-2.0) 09/05/16 22:13 Calcium 7.8 mg/dL (8.6-10.3) L 09/06/16 04:42 Total Bilirubin 0.50 mg/dL (0.2-1.0) 09/05/16 18:20 AST 20 U/L (13-39) 09/05/16 18:20 ALT 9 U/L (7-52) 09/05/16 18:20 Alkaline Phosphatase 49 U/L (34-104) 09/05/16 18:20 Troponin I 0.02 ng/mL (<0.04) 09/05/16 18:20 C-Reactive Protein 15.78 mg/L (< 5.00) H 09/05/16 18:20 Total Protein 6.3 g/dL (6.4-8.9) L 09/05/16 18:20 Albumin 3.5 g/dL (3.2-5.2) 09/05/16 18:20 Globulin 2.8 g/dL (2-4) 09/05/16 18:20 Albumin/Globulin Ratio 1.3 (1-3) 09/05/16 18:20 Urine Color Yellow 09/05/16 19:37 Urine Appearance Clear 09/05/16 19:37 Urine pH 5.0 (5-9) 09/05/16 19:37 Ur Specific [place] 1.013 (1.010-1.030) 09/05/16 19:37 Urine Protein Negative (Negative) 09/05/16 19:37 Urine Ketones Negative (Negative) 09/05/16 19:37 Urine Blood Negative (Negative) 09/05/16 19:37 Urine Nitrate Negative (Negative) 09/05/16 19:37 Urine Bilirubin Negative (Negative) 09/05/16 19:37 Urine Urobilinogen Negative (Negative) 09/05/16 19:37 Ur Leukocyte Esterase 1+ (Negative) H 09/05/16 19:37 Urine WBC (Auto) 1+(6-10/hpf) (Absent) H 09/05/16 19:37 Urine RBC (Auto) Absent (Absent) 09/05/16 19:37 Urine Bacteria Absent (Absent) 09/05/16 19:37 Hyaline Casts Present (Absent) H 09/05/16 19:37 Urine Glucose Negative (Negative) 09/05/16 19:37 CXR: Consolidation at medial Right lower lobe. EKG: Tachcardia with poor R wave progression. Assessment/Plan: 80 yo white male with PMH COPD with 50 + years pack year smoking, HTN, melanoma of the face that was admitted on 09/05/16 for SOB and productive cough with RLL Pneumonia 1) RLL Pneumonia: Continue Azithromycin and Ceftriaxone. Positive consolidation on CXR, Sputum smear most consistent with 3+ gram positive S. Pneumo, currently awaiting cultures. Continue flutter valve and oxygen therapy. 2) COPD: Cont Methylprednisone, azithromycin, dulera, and scheduled duonebs. Albuterol inhaler as needed. Cont. oxygen therapy. 3) HTN: Hold Atenolol 4) BPH: Cont Flomax 5) DVT Prophylaxis: cont Heparin 6) Code Status: Full code Status: Remain Inpatient.
--- NOTE | 2016-09-06 12:18 | HP ---
CC: Dr. Maier.* HISTORY AND PHYSICAL: DATE OF ADMISSION: 09/05/16 PRIMARY CARE PROVIDER: Dr. Maier. ATTENDING PHYSICIAN WHILE IN THE HOSPITAL: Bryce Bauer MD* (report dictated by Bradly Olmstead NP). CHIEF COMPLAINT: 1. Cough. 2. Shortness of breath. HISTORY OF PRESENT ILLNESS: Mr. Prince is a 80-year-old male patient who has a history of melanoma, hypertension, COPD, and also cancer of the tear duct. He comes into the ER today stating in the last couple of days, he has had progressive worsening shortness of breath associated with chills, cough, bringing up a mucopurulent type sputum. This has been yellow at times to green. He states he has been trying his inhaler that was prescribed to him, but unfortunately he has just not been feeling any better. He denied having any recent sick contacts. Denied having any rhinorrhea or sore throat, but he was concerned because his breathing was not getting any better, he came into the ER today. It was noted that he was febrile, tachycardic, appeared to be hypoxic, appeared to be septic from the pneumonia, and because of this we were asked to evaluate for admission. He denied any other symptoms such as abdominal pain, nausea, vomiting, or diarrhea. PAST MEDICAL HISTORY: Significant for: 1. Melanoma. 2. Hypertension. 3. COPD. 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 PAST SURGICAL HISTORY: Denied. FAMILY HISTORY: Mother had cancer. Father had a history of [place]. SOCIAL HISTORY: He is a former smoker. He does drink a shot of whisky daily in the morning. Surrogate decision maker is his sister, Dara. ALLERGIES TO MEDICATIONS: Include no known drug allergies. MEDICATIONS: The medication list that we were able to obtain includes: 1. Prednisone 40 mg daily. 2. Oxycodone 5 to 10 mg every 8 hours as needed. 3. Spiriva one capsule inhale daily. 4. Flomax 0.4 mg p.o. daily. 5. Colace 100 mg p.o. b.i.d. 6. Aspirin 81 mg daily. 7. ProAir 2 puffs inhale q.i.d. as needed. REVIEW OF SYSTEMS: There is a documented fever. He denied any significant weight change. There was no double vision. He denies having any ear discharge. There was no rhinorrhea. No sore throat. No thyroid enlargement. Denied any chest pain with the exception when he takes a deep breath, it does hurt when he coughs. He does admit to having dyspnea on exertion. He denies any orthopnea. No nocturnal dyspnea. There is no abdominal pain. No nausea. No vomiting. No dysuria. No frequency. No loss of consciousness. No pruritus and no skin ulcerations. Review of 14 systems completed, all others negative. PHYSICAL EXAMINATION GENERAL: At this time, Mr. Prince is a 80-year-old male patient. He does not appear to be in acute respiratory distress. He appears to be chronically ill. He is sitting in the ER stretcher. VITAL SIGNS: Reveals blood pressure 146/82, initially pulse 130 and it is now 120 to 110, his O2 sat was 94% on 4 L, temperature was 102.7. HEENT: Head is atraumatic, normocephalic. Eyes: EOMs are intact. Sclerae was anicteric and not pale. Throat: Oral mucosa appeared to be dry. No oropharyngeal erythema. NECK: Supple. HEART: Sounds S1 and S2. Regular rate and rhythm. He is tachycardic. LUNGS: He did have wheezing in the lower lobes. He had equal diaphragmatic expansion. He had rhonchi noted as well. ABDOMEN: His abdomen is flat, soft, nontender. Bowel sounds are present. EXTREMITIES: Pulses 2+ throughout. No peripheral edema. 5/5 strength. NEUROLOGIC: He is awake, alert, and oriented x3. No gross focal deficits. SKIN: Intact. LABORATORY DATA/DIAGNOSTIC STUDIES: Revealed WBC 12.3, RBC at 2.88, hemoglobin 11.7, hematocrit 36, platelet count 189. INR 0.86, PTT at 25.6. His sodium was 139, potassium 2.5, chloride 105, bicarbonate 25, BUN 27, creatinine 0.91, glucose 85, calcium 8.6, total bili 0.5, AST 20, ALT 9, alk phos 29, troponin 0.02, albumin of 3.5. He did have a chest x-ray obtained today. When I reviewed it, it does appear that he has right lower lobe infiltrates. Radiology read this as airspace consolidation at the medial right lower lung zone most consistent with pneumonia given absence of volume loss to favor atelectasis, stigmata of COPD, and emphysema. He did have an EKG obtained today as well, which showed sinus tachycardia, rate of 118. No ST elevations or Q wave inversions are noted. It is reviewed to a previous EKG, it is similar. Tachycardia is there as well in the previous EKG. Old medical records were reviewed. ASSESSMENT AND PLAN: Mr. Prince is a 80-year-old male patient with a former history of smoking and COPD, coming in today with 2-day history of shortness of breath, cough, and fever. He will be admitted under inpatient status for: 1. Sepsis secondary to pneumonia with COPD exacerbation. At this point, he did get 2 L of fluid here down in the ER. Blood cultures were sent. I am going to a get sputum culture, Legionella antigen, and Streptococcus pneumoniae antigen. We will place the patient on steroids, nebulizers around the clock. In addition to this, antibiotics in the form of Rocephin and azithromycin. I did add Dulera and Solu-Medrol as well, and I will continue with aggressive pulmonary toilet. 2. Melanoma and cancer of the tear ducts. He can follow with his primary. 3. Hypertension. He is not on current medications for this. According to the list that we have we may need to clarify this with his Primary tomorrow. We will monitor this. He will be needed to start antihypertensives as well. 4. COPD, again it is an exacerbation. He will be on steroids, nebulizers, and antibiotics. 5. DVT prophylaxis. He will be placed on heparin subcu as he is high risk. 6. Code status. Full code. 7. Fluids, electrolytes, and nutrition. He can have a regular diet. TIME SPENT: On the admission was 60 minutes, greater than half the time was spent [id number] with the patient obtaining my history and physical, other half of the time was spent going over the plan of care with the patient and implementing the plan of care. I did discuss the plan of care with my attending , Dr. Bauer, he is in agreement. BRADLY OLMSTEAD, MUSHTAQ [id number]/[facility] #: [id number] PREETI
[2016-09-06] MEDS ORDERED: Spiriva Inhaler DEVICE* 1 EACH DEVICE INH ONE (15:00)
--- NOTE | 2016-09-06 15:02 | PN ---
Subjective Date of Service: 09/06/16 Interval History: This is a 80 yo gentleman with COPD and HTN who presented with c/o cough, SOB and fever with RLL infiltrate. Patient has been started on treatment for CAP and COPD exacerbation. Patient reports that his chest pressure has improved. He continues to cough. Some dyspnea with exertion. No abd pain, n/v Objective Active Medications: Albuterol/Ipratropium (Duoneb (Albuterol 2.5 Mg/Ipratropium 0.5 Mg)) 1 neb INH Q4H [facility] Last Admin: 09/06/16 12:43 Dose: Not Given Aspirin (Aspirin Ec Low Dose*) 81 mg PO DAILY [facility] Last Admin: 09/06/16 07:43 Dose: 81 mg Heparin Sodium (Porcine) (Heparin Vial(*)) 5,000 units SUBCUT Q8HR [facility] Last Admin: 09/06/16 13:18 Dose: 5,000 units Sodium Chloride (Ns 0.9% 1000 Ml*) 1,000 mls @ 100 mls/hr IV PER RATE [facility] Last Admin: 09/05/16 20:52 Dose: 100 mls/hr Ceftriaxone Sodium 1,000 mg/ (Sodium Chloride) 50 mls @ 200 mls/hr IVPB Q24H [facility] Azithromycin 500 mg/ Sodium (Chloride) 250 mls @ 250 mls/hr IVPB Q24H [facility] Mometasone Furoate/Formoterol Fumar (Dulera 200/5 Mdi*) 2 puff INH BID [facility] Last Admin: 09/06/16 09:09 Dose: 2 puff Oxycodone HCl (Roxycodone Tab*) 5 mg PO Q8HR PRN PRN Reason: PAIN Prednisone (Deltasone Tab*) 40 mg PO DAILY [facility] Tamsulosin HCl (Flomax Cap*) 0.4 mg PO DAILY [facility] Last Admin: 09/06/16 07:43 Dose: 0.4 mg Tiotropium [place] (Spiriva Cap.Inh*) cap INH DAILY [facility] Vital Signs: Temp Pulse Resp BP Pulse Ox 97.7 F 94 76 133/72 94 09/06/16 07:17 09/06/16 09:26 09/06/16 09:26 09/06/16 07:17 09/06/16 09:26 Oxygen Devices in Use Now: Nasal Cannula Appearance: well appearing elderly gentleman in NAD, disheveled appearance Respiratory: Symmetrical Chest Expansion and Respiratory Effort, - - reduced breath sounds in posterior smith with occasional wheeze Cardiovascular: RRR Abdominal: NL Sounds; No Tenderness; No Distention Neurological: Alert and Oriented x 3 Result Diagrams: 09/06/16 04:42 09/06/16 04:42 Additional Lab and Data: . Microbiology and Other Data: Microbiology 09/05/16 20:25 Gram Stain - Final Sputum Expectorated Sputum Culture - Preliminary Streptococcus Pneumoniae 09/05/16 19:40 Legionella Urinary Antigen - Final Urine Negative Legionella Streptococcus pneumoniae Ag Screen - Final Positive S. Pneumo Antigen Diagnostic Imaging: CXR - RLL consolidation Assess/Plan/Problems-Billing Assessment: This is a 80 yo gentleman with COPD and HTN who presented with complaints of cough, fever and SOB with RLL infiltrate on CXR. Admitted for PNA and COPD exacerbation - Patient Problems (1) PNA (pneumonia) Comment: Cont ceftriaxone and azithromycin (2) COPD (chronic obstructive pulmonary disease) Comment: Associated with PNA Stop solumedrol and start oral prednisone for tomorrow am Cont Spiriva and duoNebs Dulera has been started (3) HTN (hypertension) Comment: Normotensive No home antihypertensives listed (4) DVT prophylaxis Comment: Heparin subq (5) Full code status Status and Disposition: Inpatient. Anticipate additional 1-2d LOS
[2016-09-06] MEDS: Azithromycin IV(*) 500 MG in NS 0.9% 250 ML* 250 ML IVPB SCH (17:44)
[2016-09-06] MEDS: cefTRIAXone VIAL(*) 1,000 MG in NS 0.9% 50 ML* 50 ML IVPB SCH (19:46)
[2016-09-07] MEDS: Albuterol/Ipratropium NEB.SOL* Albuterol 2.5 MG/Ipratropium 0.5 MG 3 ML INH SCH ×3 (03:52→11:57)
[2016-09-07] MEDS: Heparin VIAL(*) 5000 UNITS/ML VIAL (FIVE THOUSAND) SUBCUT SCH ×3 (05:41→22:44)
[2016-09-07 06:37] LABS: Hematocrit 29 % (42-52); Hemoglobin 9.8 g/dl (14.0-18.0); Mean Corpuscular HGB Conc 33 g/dl (31-36); Mean Corpuscular Hemoglobin 31 pg (27-31); Mean Corpuscular Volume 91 fL (80-94); Mean Platelet Volume 8 um3 (7.4-10.4); Red Blood Count 3.22 10^6/ul (4.0-5.4); Red Cell Distribution Width 16 % (10.5-15); White Blood Count 10.6 10^3/ul (3.5-10.8)
[2016-09-07 06:55] LABS: BUN/Creatinine Ratio 33.8 (8-20); EGFR African American 120.2 (>60); EGFR Non-African American 93.5 (>60); Potassium 3.2 mmol/L (3.5-5.0)
[2016-09-07] MEDS: Tiotropium CAP.INH* CAP.INH/18 MCG INH SCH (07:47)
[2016-09-07] MEDS: Mometasone/Formoter 200/5 MDI INH SCH ×2 (07:47→19:22)
[2016-09-07 07:53] LABS: Magnesium 2.1 mg/dL (1.9-2.7)
[2016-09-07] MEDS ORDERED: Potassium Chlor TAB* 20 MEQ TAB.ER PO ONE (07:55)
[2016-09-07] MEDS: Aspirin EC Low Dose* 81 MG TAB.EC PO SCH (08:01)
[2016-09-07] MEDS: Tamsulosin CAP* 0.4 MG PO SCH (08:01)
[2016-09-07] MEDS: predniSONE TAB* 20 MG PO SCH (08:01)
--- NOTE | 2016-09-07 10:23 | PN ---
Subjective Date of Service: 09/07/16 Interval History: Patient reports some improvement in dyspnea. Still having some chest pressure/ tightness. Oxygen demands improving. Objective Active Medications: Albuterol/Ipratropium (Duoneb (Albuterol 2.5 Mg/Ipratropium 0.5 Mg)) 1 neb INH Q4H [facility] Last Admin: 09/07/16 07:46 Dose: 1 neb Aspirin (Aspirin Ec Low Dose*) 81 mg PO DAILY [facility] Last Admin: 09/07/16 08:01 Dose: 81 mg Heparin Sodium (Porcine) (Heparin Vial(*)) 5,000 units SUBCUT Q8HR [facility] Last Admin: 09/07/16 05:41 Dose: 5,000 units Ceftriaxone Sodium 1,000 mg/ (Sodium Chloride) 50 mls @ 200 mls/hr IVPB Q24H [facility] Last Admin: 09/06/16 19:46 Dose: 200 mls/hr Azithromycin 500 mg/ Sodium (Chloride) 250 mls @ 250 mls/hr IVPB Q24H [facility] Last Admin: 09/06/16 17:44 Dose: 250 mls/hr Mometasone Furoate/Formoterol Fumar (Dulera 200/5 Mdi*) 2 puff INH BID [facility] Last Admin: 09/07/16 07:47 Dose: 2 puff Oxycodone HCl (Roxycodone Tab*) 5 mg PO Q8HR PRN PRN Reason: PAIN Prednisone (Deltasone Tab*) 40 mg PO DAILY [facility] Last Admin: 09/07/16 08:01 Dose: 40 mg Tamsulosin HCl (Flomax Cap*) 0.4 mg PO DAILY [facility] Last Admin: 09/07/16 08:01 Dose: 0.4 mg Tiotropium [place] (Spiriva Cap.Inh*) 1 cap INH DAILY [facility] Last Admin: 09/07/16 07:47 Dose: 1 cap Vital Signs: Temp Pulse Resp BP Pulse Ox 97.9 F 111 22 161/89 90 09/07/16 07:28 09/07/16 07:48 09/07/16 07:48 09/07/16 07:28 09/07/16 07:48 Oxygen Devices in Use Now: None Appearance: Mildly ill but overall well appearing elderly gentleman in NAD Respiratory: Symmetrical Chest Expansion and Respiratory Effort, - - quiet breath sounds in posterior smith. No wheeze or crackles Cardiovascular: NL Sounds; No Murmurs; No JVD, RRR Abdominal: NL Sounds; No Tenderness; No Distention Extremities: No Edema Neurological: Alert and Oriented x 3 Result Diagrams: 09/07/16 06:23 09/07/16 06:23 Additional Lab and Data: . Microbiology and Other Data: Microbiology 09/05/16 20:25 Gram Stain - Final Sputum Expectorated Sputum Culture - Preliminary Streptococcus Pneumoniae 09/05/16 19:40 Legionella Urinary Antigen - Final Urine Negative Legionella Streptococcus pneumoniae Ag Screen - Final Positive S. Pneumo Antigen Diagnostic Imaging: CXR - RLL consolidation Assess/Plan/Problems-Billing Assessment: This is a 80 yo gentleman with COPD and HTN who presented with complaints of cough, fever and SOB with RLL infiltrate on CXR. Admitted for PNA and COPD exacerbation - Patient Problems (1) PNA (pneumonia) Comment: Improving Cont ceftriaxone and azithromycin (2) COPD (chronic obstructive pulmonary disease) Comment: Associated with PNA Cont prednisone, Spiriva and duoNebs Dulera has been started (3) HTN (hypertension) Comment: Slightly hypertensive this am, perhaps d/t steroid use No home antihypertensives listed (4) DVT prophylaxis Comment: Heparin subq (5) Full code status Status and Disposition: Inpatient. Anticipate possible dc tomorrow
--- NOTE | 2016-09-07 11:23 | PN ---
Progress Note - Progress Note Date of Service: 09/07/16 SOAP: Subjective: This is a 80 yo white male with PMH COPD with 50 + years pack year smoking, HTN , melanoma of the face that was admitted on 09/05/16 for SOB and productive cough with RLL Pneumonia. Reports SOB with some improvement, productive cough, weakness and fatigue . Denies chills/sweats, chest pain, abdominal pain, n/v/d/ c. Active Medications: Albuterol/Ipratropium (Duoneb (Albuterol 2.5 Mg/Ipratropium 0.5 Mg)) 1 neb INH Q4H [facility] Last Admin: 09/07/16 07:46 Dose: 1 neb Aspirin (Aspirin Ec Low Dose*) 81 mg PO DAILY [facility] Last Admin: 09/07/16 08:01 Dose: 81 mg Heparin Sodium (Porcine) (Heparin Vial(*)) 5,000 units SUBCUT Q8HR [facility] Last Admin: 09/07/16 05:41 Dose: 5,000 units Ceftriaxone Sodium 1,000 mg/ (Sodium Chloride) 50 mls @ 200 mls/hr IVPB Q24H [facility] Last Admin: 09/06/16 19:46 Dose: 200 mls/hr Azithromycin 500 mg/ Sodium (Chloride) 250 mls @ 250 mls/hr IVPB Q24H [facility] Last Admin: 09/06/16 17:44 Dose: 250 mls/hr Mometasone Furoate/Formoterol Fumar (Dulera 200/5 Mdi*) 2 puff INH BID [facility] Last Admin: 09/07/16 07:47 Dose: 2 puff Oxycodone HCl (Roxycodone Tab*) 5 mg PO Q8HR PRN PRN Reason: PAIN Prednisone (Deltasone Tab*) 40 mg PO DAILY [facility] Last Admin: 09/07/16 08:01 Dose: 40 mg Tamsulosin HCl (Flomax Cap*) 0.4 mg PO DAILY [facility] Last Admin: 09/07/16 08:01 Dose: 0.4 mg Tiotropium [place] (Spiriva Cap.Inh*) 1 cap INH DAILY [facility] Last Admin: 09/07/16 07:47 Dose: 1 cap Allergies Allergy/AdvReac Type Severity Reaction Status Date / Time No Known Allergies Allergy Verified 04/24/16 21:16 Objective: Vital Signs Temp Pulse Resp BP Pulse Ox 97.9 F 111 22 161/89 90 09/07/16 07:28 09/07/16 07:48 09/07/16 07:48 09/07/16 07:28 09/07/16 07:48 General: Patient is sitting up in bed, is alert and oriented X3, elderly white male, cooperative with examination. HEENT: Head is atraumatic, normocephalic. Mouth and mucus membranes are dry but without erythema. Lungs: Chest symmetric, lungs sounds without wheezing, crackles, or rhonchi. Heart: RRR, S1 and S2 split heard, no JVD, no murmurs, rubs, or gallops. Abdomen: Bowel sounds are normoactive in all four quadrants. Abdomen is soft and nontender to palpation. Extremities: No edema. Distal pulses are intact and 2+. Neuro: Alert and Oriented X3. WBC 10.6 10^3/ul (3.5-10.8) 09/07/16 06:23 RBC 3.22 10^6/ul (4.0-5.4) L 09/07/16 06:23 Hgb 9.8 g/dl (14.0-18.0) L 09/07/16 06:23 Hct 29 % (42-52) L 09/07/16 06:23 MCV 91 fL (80-94) 09/07/16 06:23 MCH 31 pg (27-31) 09/07/16 06:23 MCHC 33 g/dl (31-36) 09/07/16 06:23 RDW 16 % (10.5-15) H 09/07/16 06:23 Plt Count 156 10^3/ul (150-450) 09/07/16 06:23 MPV 8 um3 (7.4-10.4) 09/07/16 06:23 Neut % (Auto) 90.0 % (38-83) H 09/07/16 06:23 Lymph % (Auto) 5.2 % (25-47) L 09/07/16 06:23 Leon % (Auto) 4.7 % (1-9) 09/07/16 06:23 Eos % (Auto) 0 % (0-6) 09/07/16 06:23 Baso % (Auto) 0.1 % (0-2) 09/07/16 06:23 Absolute Neuts (auto) 9.5 10^3/ul (1.5-7.7) H 09/07/16 06:23 Absolute Lymphs (auto) 0.5 10^3/ul (1.0-4.8) L 09/07/16 06:23 Absolute Monos (auto) 0.5 10^3/ul (0-0.8) 09/07/16 06:23 Absolute Eos (auto) 0 10^3/ul (0-0.6) 09/07/16 06:23 Absolute Basos (auto) 0 10^3/ul (0-0.2) 09/07/16 06:23 Absolute Nucleated RBC 0 10^3/ul 09/07/16 06:23 Nucleated RBC % 0 09/07/16 06:23 INR (Anticoag Therapy) 0.86 (0.89-1.11) L 09/05/16 18:20 APTT 25.6 seconds (26.0-36.3) L 09/05/16 18:20 Sodium 141 mmol/L (133-145) 09/07/16 06:23 Potassium 3.2 mmol/L (3.5-5.0) L 09/07/16 06:23 Chloride 111 mmol/L (101-111) 09/07/16 06:23 Carbon Dioxide 25 mmol/L (22-32) 09/07/16 06:23 Anion Gap 5 mmol/L (2-11) 09/07/16 06:23 BUN 27 mg/dL (6-24) H 09/07/16 06:23 Creatinine 0.80 mg/dL (0.67-1.17) 09/07/16 06:23 Est GFR ( Amer) 120.2 (>60) 09/07/16 06:23 Est GFR (Non-Af Amer) 93.5 (>60) 09/07/16 06:23 BUN/Creatinine Ratio 33.8 (8-20) H 09/07/16 06:23 Glucose 141 mg/dL (70-100) H 09/07/16 06:23 Lactic Acid 1.2 mmol/L (0.5-2.0) 09/05/16 22:13 Calcium 8.0 mg/dL (8.6-10.3) L 09/07/16 06:23 Magnesium 2.1 mg/dL (1.9-2.7) 09/07/16 06:23 Total Bilirubin 0.50 mg/dL (0.2-1.0) 09/05/16 18:20 AST 20 U/L (13-39) 09/05/16 18:20 ALT 9 U/L (7-52) 09/05/16 18:20 Alkaline Phosphatase 49 U/L (34-104) 09/05/16 18:20 Troponin I 0.02 ng/mL (<0.04) 09/05/16 18:20 C-Reactive Protein 15.78 mg/L (< 5.00) H 09/05/16 18:20 Total Protein 6.3 g/dL (6.4-8.9) L 09/05/16 18:20 Albumin 3.5 g/dL (3.2-5.2) 09/05/16 18:20 Globulin 2.8 g/dL (2-4) 09/05/16 18:20 Albumin/Globulin Ratio 1.3 (1-3) 09/05/16 18:20 Urine Color Yellow 09/05/16 19:37 Urine Appearance Clear 09/05/16 19:37 Urine pH 5.0 (5-9) 09/05/16 19:37 Ur Specific [place] 1.013 (1.010-1.030) 09/05/16 19:37 Urine Protein Negative (Negative) 09/05/16 19:37 Urine Ketones Negative (Negative) 09/05/16 19:37 Urine Blood Negative (Negative) 09/05/16 19:37 Urine Nitrate Negative (Negative) 09/05/16 19:37 Urine Bilirubin Negative (Negative) 09/05/16 19:37 Urine Urobilinogen Negative (Negative) 09/05/16 19:37 Ur Leukocyte Esterase 1+ (Negative) H 09/05/16 19:37 Urine WBC (Auto) 1+(6-10/hpf) (Absent) H 09/05/16 19:37 Urine RBC (Auto) Absent (Absent) 09/05/16 19:37 Urine Bacteria Absent (Absent) 09/05/16 19:37 Hyaline Casts Present (Absent) H 09/05/16 19:37 Urine Glucose Negative (Negative) 09/05/16 19:37 Imaging: CXR: Consolidation at medial Right lower lobe. EKG: Tachcardia with poor R wave progression. Assessment/Plan: This is a 80 yo white male with PMH COPD with 50 + years pack year smoking, HTN , melanoma of the face that was admitted on 09/05/16 for SOB and productive cough with RLL Pneumonia. 1) RLL Pneumonia: Continue Azithromycin and Ceftriaxone. Positive consolidation on CXR, Sputum smear and culture most consistent with 3+ gram positive S. Pneumo. Continue flutter valve and oxygen therapy. 2) COPD: Cont prednisone, azithromycin, dulera, and scheduled duonebs. Albuterol inhaler as needed. Cont. oxygen therapy. 3) HTN: Mildly Hypertensive. 4) BPH: Cont Flomax 5) DVT Prophylaxis: cont Heparin 6) Code Status: Full code Status: Remain Inpatient.
[2016-09-07] MEDS ORDERED: Albuterol/Ipratropium NEB.SOL* Albuterol 2.5 MG/Ipratropium 0.5 MG 3 ML INH PRN (12:02)
[2016-09-07] MEDS: Azithromycin IV(*) 500 MG in NS 0.9% 250 ML* 250 ML IVPB SCH (18:09)
[2016-09-07] MEDS: cefTRIAXone VIAL(*) 1,000 MG in NS 0.9% 50 ML* 50 ML IVPB SCH (19:53)
[2016-09-08] MEDS: Heparin VIAL(*) 5000 UNITS/ML VIAL (FIVE THOUSAND) SUBCUT SCH (05:41)
[2016-09-08 07:45] VITALS: BP 167/86
[2016-09-08] MEDS: Tamsulosin CAP* 0.4 MG PO SCH (07:49)
[2016-09-08] MEDS: predniSONE TAB* 20 MG PO SCH (07:49)
[2016-09-08] MEDS: Aspirin EC Low Dose* 81 MG TAB.EC PO SCH (07:49)
[2016-09-08] MEDS: Tiotropium CAP.INH* CAP.INH/18 MCG INH SCH (08:34)
[2016-09-08] MEDS: Mometasone/Formoter 200/5 MDI INH SCH (08:34)
--- NOTE | 2016-09-08 10:48 | DS ---
DOA: 09/05/2016 DOD: 09/08/2016 Care Team: Admitting Provider: Dr. Bryce Bauer Attending Provider: Leon Valderrama PA-C Discharge Provider: Kiki Garrido. PA-S PCP: Dr. Sameer Maier Discharge Diagnosis: 1) RLL Pneumonia 2) COPD Exacerbation Secondary Diagnosis: 1) Hypertension 2) BPH Discharge medications: Tiotropium 1 cap inhaled once daily Albuterol 2 puffs QID as needed Dulera 2 puff BID Prednisone 30mg for 3 days, 20 mg for 3 days, 10 mg for 3 days, down to 0 mg. Levaquin 750 mg X7 days PO ASA 81 mg PO daily Flomax 0.4 mg PO daily Oxycodone 5 mg PO daily Colace 100 mg PO BID Changes to home medications: Start Dulera Taper off Prednisone Start Levaquin Imaging: CXR: Consolidation at medial RLL EKG: Tachycardia with poor R wave progression Hospital course: This is a 80 yo gentleman with COPD with 50 + years smoking hx, and HTN that was admitted for RLL pneumonia and COPD exacerbation on 09/05/2016 to the ER with complaints of SOB, weakness, chills, with productive cough without improvement from his home inhalers. On admission he was febrile, tachycardic, and appearing hypoxic with leukocytosis with white cell count of 12.3, elevated C-reactive protein 15.78, and concerns of possible sepsis. It was noted a lactic acidosis of 2.7 likely due to infection that eventually resolved. He was given 2L of fluid in the ER and started on Rocephin and Azithromycin and course of inhalers, continued on prednisone, and on flutter valve and oxygen therapy. Patient remained inpatient with continued SOB, cough, ,weakness, and some chest tightness with improvement each day and patient remained afebrile. Sputum cultures came back with evidence of gram positive Strep Pneumo and blood cultures came back negative. On day of discharge he was symptomatically significantly improved with resolved leukocytosis with WBC of 10.6, H/H of 9.8/29, Platelets: 156,000, Sodium of 141, Potassium of 3.2, CO2 of 25, BUN of 27, Glucose of 141, and Creatinine of 0.80. Mr. Baker was discharged with a 7 day course of Levaquin, addition of Dulera to his home medications, and tapering dose of prednisone. Follow up plan/disposition: Patient will return to his home in [facility]. He has been instructed on additions/changes to home medications as described above and to continue his regular regimen. He has been instructed to return is symptoms worsen or fever returns. He is to follow up with his PCP in the next 1-2 weeks.
--- NOTE | 2016-09-09 01:43 | DS ---
ADDENDUM NOW INCLUDED ON THIS REPORT CC: Dr. Maier * DISCHARGE SUMMARY: DATE OF ADMISSION: 09/05/16 DATE OF DISCHARGE: 09/08/16 PRIMARY CARE PROVIDER: Dr. Maier. DISCHARGING PROVIDER: JL Little SUPERVISING PHYSICIAN: Luisana Sánchez MD* (DICTATED BY JL LITTLE) PRIMARY DISCHARGE DIAGNOSES: 1. Pneumonia. 2. Chronic obstructive pulmonary disease exacerbation. SECONDARY DISCHARGE DIAGNOSIS: Hypertension. DISCHARGE MEDICATIONS: 1. Albuterol 2 puffs inhaled 4 times daily as needed for shortness of breath. 2. Aspirin 81 mg p.o. daily. 3. Doxycycline 100 mg p.o. twice daily x7 days. 4. Docusate 100 mg p.o. twice daily. 5. Dulera 2 puffs inhaled twice daily. 6. Flomax 0.4 mg p.o. daily. 7. Spiriva 1 capsule inhaled daily. 8. Oxycodone 5 to 10 mg p.o. q.8 hours as needed for pain. 9. Prednisone at a tapering dose of 40 mg daily x3 days followed by 20 mg daily x3 days. Medication changes: 1. Start Dulera. 2. Prednisone on a tapering dose. 3. Doxycycline x7 days. HOSPITAL IMAGING: Chest x-ray shows right lower lobe consolidation consistent with pneumonia and stigmata of COPD and emphysema. HOSPITAL COURSE: This is a 80-year-old gentleman with COPD and hypertension who presented to the emergency department with complaints of cough and shortness of breath. He had been having progressive shortness of breath as well as a productive cough for several days prior to admission. He states that he was using his albuterol frequently at home without improvement in symptoms. He was febrile upon reaching the emergency department with a maximum temperature of 102.7 degrees Fahrenheit with a leukocytosis and moderately elevated lactic acid. Initial chest x-ray demonstrated a right lower lobe pneumonia. The patient was not severely hypoxic at the time of admission. The patient was subsequently admitted for treatment of pneumonia and subsequent COPD exacerbation. He was started on ceftriaxone and azithromycin to cover community-acquired pathogens, as well as corticosteroids, Spiriva and Dulera with scheduled DuoNebs. The patient's oxygen requirements decreased and his feelings of dyspnea improved. He was complaining of chest tightness and pressure throughout his hospital stay, but those symptoms have nearly resolved at the time of discharge. DISPOSITION AND FOLLOWUP PLAN: The patient is being discharged to home. Prescription has been written for a nebulizer machine at home with [facility]. He has been sent with additional new medications as described above. The patient requires close followup with his primary care provider within the next week to ensure his continued improvement following discharge. JL LITTLE ADDENDUM: DATE OF ADMISSION: 09/05/16 DATE OF DISCHARGE: 09/08/16 Please note that final sensitivities returned on sputum culture just prior to discharge. Final culture results include Strep pneumo, which is resistant to tetracyclines, but is sensitive to fluoroquinolones and for this reason, prescription was changed from doxycycline to Levaquin for an additional 7 days of treatment. This will be clarified with the patient's pharmacy as well. JL LITTLE [id number]/[facility] #: [id number]/[facility] #: [id number] PREETI
--- NOTE | 2016-09-09 03:00 | DS ---
CC: Primary Care Provider * DISCHARGE SUMMARY: ADDENDUM: DATE OF ADMISSION: 09/05/16 DATE OF DISCHARGE: 09/08/16 Please note that final sensitivities returned on sputum culture just prior to discharge. Final culture results include Strep pneumo, which is resistant to tetracyclines, but is sensitive to fluoroquinolones and for this reason, prescription was changed from doxycycline to Levaquin for an additional 7 days of treatment. This will be clarified with the patient's pharmacy as well. JL LITTLE [id number]/[facility] #: [id number] PREETI
== END 2016-09-08 09:40 | disposition home or self-care (01) | DRG 190 ==
LOC: ED 17:49 → MED 19:31
PROVIDERS: ADMIT Internal Medicine; ATTEND Internal Medicine
DX: J44.0 Chronic obstructive pulmonary disease with (acute) lower respiratory infection (principal); J18.9 Pneumonia, unspecified organism; R64 Cachexia; J44.1 Chronic obstructive pulmonary disease with (acute) exacerbation; Z87.891 Personal history of nicotine dependence; Z72.89 Other problems related to lifestyle; I10 Essential (primary) hypertension; Z85.820 Personal history of malignant melanoma of skin; Z85.89 Personal history of malignant neoplasm of other organs and systems; Z80.9 Family history of malignant neoplasm, unspecified; Z82.49 Family history of ischemic heart disease and other diseases of the circulatory system; N40.0 Benign prostatic hyperplasia without lower urinary tract symptoms; Z79.82 Long term (current) use of aspirin
CPT/HCPCS: 36415; 71010; 80048; 80053; 81003; 81015; 83605; 83735; 84484; 85025; 85610; 85730; 86140; 87040; 87070; 87077; 87086; 87184; 87186; 87205; 87899; 93005; 94640; 94667; 94760; A9270-GY; J0456; J0696; J1644; J2930; J7512

== ENCOUNTER 2016-11-01 08:22 | Observation (INO) | payer MEDICARE, MEDICAID ==
[2016-11-01] MEDS ORDERED: Nitroglycerin TAB 0.4 MG* 0.4 MG TAB SL ONE (08:30)
[2016-11-01] MEDS ORDERED: Aspirin Low Dose CHEW TAB* 81 MG PO ONE (08:30)
[2016-11-01] MEDS ORDERED: Albuterol/Ipratropium NEB.SOL* Albuterol 2.5 MG/Ipratropium 0.5 MG 3 ML INH ONE (08:39)
[2016-11-01] MEDS ORDERED: methylPREDNISolone 125 MG* 2 ML VIAL IV ONE (08:39)
--- NOTE | 2016-11-01 08:56 | RAD ---
HISTORY: Chest pain COMPARISONS: September 05, 2016 VIEWS:1: Single frontal portable view of the chest at 8:45 AM FINDINGS: LINES AND TUBES: None. CARDIOMEDIASTINAL SILHOUETTE: The cardiomediastinal silhouette is normal for portable technique. PLEURA: The costophrenic angles are sharp. No pleural abnormalities are noted. LUNG PARENCHYMA: There is hyperinflation. ABDOMEN: The upper abdomen is clear. There is no subphrenic gas. BONES AND SOFT TISSUES: No bone or soft tissue abnormalities are noted. IMPRESSION: HYPERINFLATION. NO ACTIVE CARDIOPULMONARY DISEASE.
[2016-11-01 09:13] LABS: Hematocrit 38 % (42-52); Mean Corpuscular HGB Conc 34 g/dl (31-36); Mean Corpuscular Hemoglobin 32 pg (27-31); Mean Corpuscular Volume 93 fL (80-94); Mean Platelet Volume 8 um3 (7.4-10.4); Red Blood Count 4.09 10^6/ul (4.0-5.4); Red Cell Distribution Width 16 % (10.5-15); White Blood Count 8.4 10^3/ul (3.5-10.8)
[2016-11-01 09:48] LABS: Albumin 3.4 g/dL (3.2-5.2); BUN/Creatinine Ratio 31.5 (8-20); Calcium 9.6 mg/dL (8.6-10.3); EGFR African American 59.9 (>60); EGFR Non-African American 46.6 (>60); Potassium 4.3 mmol/L (3.5-5.0); Total Bilirubin 0.9 mg/dL (0.2-1.0); Total Protein 6.4 g/dL (6.4-8.9)
[2016-11-01] MEDS ORDERED: NS 0.9% 1000 ML* 1,000 ML IV ONE (10:03)
[2016-11-01] MEDS ORDERED: Nitroglycerin 0.4 MG/HR PATCH* (10 MG) TRANSDERM ONE (10:03)
[2016-11-01] MEDS ORDERED: oxyCODONE TAB* 5 MG TAB PO PRN (10:23)
[2016-11-01] MEDS ORDERED: Docusate CAP* 100 MG PO PRN (10:23)
[2016-11-01] MEDS ORDERED: Albuterol/Ipratropium NEB.SOL* Albuterol 2.5 MG/Ipratropium 0.5 MG 3 ML INH PRN (10:24)
[2016-11-01] MEDS ORDERED: Al Hydrox/Mg Hydrox/Simet LIQ* 30 ML UDC PO PRN (10:24)
[2016-11-01] MEDS ORDERED: Acetaminophen TAB* 325 MG PO PRN (10:24)
[2016-11-01] MEDS ORDERED: ALPRAZolam TAB* 0.5 MG PO PRN (10:27)
[2016-11-01] MEDS ORDERED: Iodixanol* (CONTRAST) 320 MG/ML 100 ML SDV IV ONE (10:30)
[2016-11-01] MEDS ORDERED: methylPREDNISolone SOD 40 MG* 1 ML VIAL IV SCH (11:00)
--- NOTE | 2016-11-01 11:25 | RAD ---
HISTORY: Shortness of breath, history of melanoma COMPARISONS: None TECHNIQUE: Multiple contiguous axial CT scans of the chest were obtained after the administration of nonionic intravenous contrast, timed to the pulmonary arterial phase of contrast enhancement.. Coronal and sagittal multiplanar reformations are also submitted for review. FINDINGS: NECK AND THYROID: The lower neck and thyroid are unremarkable. CHEST WALL: There is no lower cervical, axillary, or supraclavicular lymphadenopathy by size criteria. HEART AND PERICARDIUM: The heart is unremarkable. AORTA AND PULMONARY VASCULATURE: There is no pulmonary arterial filling defect to suggest pulmonary embolism. There is no linear filling defect within the aorta to suggest aortic dissection. MEDIASTINUM: There is no mediastinal lymphadenopathy by size criteria. FILOMENA: There is no hilar lymphadenopathy by size criteria. AIRWAY AND ESOPHAGUS: The airway is unremarkable, without endobronchial filling defect. The esophagus is grossly normal. LUNG PARENCHYMA: There is extensive centrilobular and panacinar emphysematous change. There is minimal compressive atelectasis of the right lung base. There is a 1.1 cm nodule of the diaphragmatic surface of the left lower lobe. PLEURA: There is a small right pleural effusion UPPER ABDOMEN: The upper abdomen is unremarkable. BONES AND SOFT TISSUES: Degenerative changes are noted OTHER: None. IMPRESSION: 1. NO PULMONARY ARTERIAL FILLING DEFECT TO SUGGEST PULMONARY EMBOLISM. 2. EMPHYSEMA. 3. 1.1 CM NODULE OF THE DIAPHRAGMATIC SURFACE OF THE LEFT LOWER LOBE. GIVEN THE HISTORY OF MALIGNANCY, METASTATIC DISEASE IS WITHIN THE DIFFERENTIAL, IS PRIMARY PULMONARY PARENCHYMAL NEOPLASM. RECOMMEND ATTENTION ON SHORT-TERM INTERVAL FOLLOW-UP, AND/OR CONSIDERATION OF CORRELATION WITH PET/CT. 4. SMALL RIGHT PLEURAL EFFUSION WITH MINIMAL COMPRESSIVE ATELECTASIS OF THE RIGHT LUNG BASE.
[2016-11-01] MEDS: NS 0.9% 1000 ML* 1,000 ML IV SCH ×2 (11:28→22:54)
--- NOTE | 2016-11-01 13:26 | HP ---
CC: Dr. Maier HISTORY AND PHYSICAL: DATE OF ADMISSION: 11/01/16 PRIMARY CARE PROVIDER: Dr. Maier. CHIEF COMPLAINT: Shortness of breath, feeling like an elephant is sitting on the chest and dizzines s when standing up. HISTORY OF PRESENT ILLNESS: Asad Prince is a 81-year-old male with a history of COPD, not on oxyg en at home, who called 911 after he felt dizzy when standing up and complained of generalized weakne ss. The patient also stated that he gets short of breath very easily and it has been feeling like a n elephant is sitting on his chest for the past 2 days. When asked him about chest pain, he stated that he has chronic pain in his right shoulder due to old injury and he has been using narcotics for the past 2 years. He stated that his chest pain is due to "feeling hard to breathe." He has chronic pain, but he denies any purulent sputum production. The patient denies fevers. The patient is of thin body habitus and he states that he has always been thin, but he also cannot g ain weight recently, although he "drinks a lot and eats a lot." The patient lives alone and his son helps him sometimes. When the hospital supervisor arrived to the patient's house/trailer, his oxygen saturation on room air was 94%. Th e patient is going to be placed on overnight observation with a diagnosis of mild COPD exacerbation and dehydration. PAST MEDICAL HISTORY: 1. History of melanoma. 2. Hypertension. 3. COPD, not on oxygen. 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 MEDICATIONS: Include: 1. Morphine ER 15 mg 3 times a day. 2. Lisinopril 10 mg daily. 3. Atenolol 50 mg daily. 4. Xanax 0.5 mg b.i.d. p.r.n. 5. Aspirin 81 mg daily. 6. Albuterol inhaler on a p.r.n. basis. 7. Oxycodone 5 to 10 mg every 8 hours p.r.n. 8. Spiriva 1 inhalation daily. 9. Dulera 200/5 two puffs b.i.d. 10. Colace 100 mg b.i.d. ALLERGIES: No known drug allergies. FAMILY HISTORY: Positive for mother with a cancer and father with a history of heart disease. SOCIAL HISTORY: The patient has a history of approximately 55-pack year smoking, he quit 2 years ag o. He drinks a shot of whisky every day. He is . His surrogate decision maker is his hi pichardo Dara Prince. REVIEW OF SYSTEMS: Please see history of present illness. The patient stated that he had been eating and drinking well, but he cannot gain weight, despite devorah t he has always been of thin body habitus. The patient injured his shoulder at work several years ago and for the past 3 years, he had been on morphine for pain management. He complains of shortness of breath with exertion. He denies pleuritic chest pain. He states that h is chest pain is like "elephant sitting on his chest" and he explains that it feels "hard to breathe ." He has had no abdominal pain. He denies any leg edema. All the remaining 14 systems were reviewed with the patient and were otherwise negative. PHYSICAL EXAMINATION GENERAL: This is a very pleasant 81-year-old male, who is in no acute distress. Alert, awake, and o riented x3. VITAL SIGNS: Temperature of 97.2, heart rate of 80 and regular, respiratory rate 16, oxygen saturat ion 93% on 2 L of oxygen nasal cannula, temperature 99.6. His height is 5 feet and 6 inches and his weight is 120 pounds. HEENT: Head atraumatic, normocephalic. Eyes: Pupils equal and reactive to light and accommodation . Oropharynx clear. Mucosa dry. NECK: Supple. No JVD. No bruits bilaterally. RESPIRATORY: Distant breath sounds bilaterally. No wheezes. CARDIOVASCULAR: Regular rate and rhythm. No murmur. ABDOMEN: Soft, nontender. Bowel sounds present in all 4 quadrants. EXTREMITIES: There is no edema. Pulses are +2 bilaterally. No clubbing or cyanosis. NEURO EVALUATION: Speech clear. Cranial nerves II through XII are grossly intact. Motor strength i s 5/5 bilaterally. SKIN: On evaluation of the skin, very dry and tenting. PSYCHIATRIC EVALUATION: Oriented x3 with no evidence of anxiety or depression. DIAGNOSTIC STUDIES/LAB DATA: Laboratory data showed white blood cell count of 8.4, hemoglobin of 1 3.0, hematocrit of 38, and platelets of 246. D-dimer of above 1000. Sodium was 135, potassium 4.3, chloride 101, carbon dioxide 29, BUN 46, creatinine 1.46. Liver func tion tests were unremarkable. Troponin of 0. The patient's portable chest x-ray, impression: "Hyperinflation. No active cardiopulmonary disease ." The patient's EKG showed normal sinus rhythm with heart rate of 75 beats per minute, but no ST rao es. ASSESSMENT AND PLAN: 1. The patient appears to be in mild COPD exacerbation. The patient was already treated with intra venous Solu-Medrol in the emergency room. He is going to be placed on prednisone on a daily basis. At this point, there was no suggestion of infection or bronchitis. No purulent sputum, no leukocyt osis and no fevers. At this point, antibiotics are not going to be instituted. Nebulizers are zenia g to be started and the patient most likely will require to have arranged nebulizer at discharge. 2. In regards to the patient's chest pain, it appears to be more respiratory related. His troponin is remarkable. EKG is also unremarkable. Nevertheless, the patient is going to be placed on telem etry monitored bed and transthoracic echocardiogram is going to be obtained in the morning. Also no arben markedly positive D-Dimer and CT angiogram of the chest is going to be obtained. Specifically du e to that and the patient has history of unable to gain weight, malignancy should be considered. 3. In regards to patient's hypertension, patient is currently mildly hypotensive and his blood pres sure medications are going to be held. 4. The patient has acute renal failure most likely due to dehydration. The patient's blood pressur e medications are going to be held and he is going to be placed on intravenous hydration with normal saline. 5. For chronic pain, his morphine is going to be continued. 6. For chronic anxiety, his Xanax is going to be continued. 7. For DVT prophylaxis, the patient is at moderate risk and heparin is going to be started subcutan eously. 8. The patient's code status is full and that was discussed with the patient. His surrogate blancaisi on maker, he chose his sister, Dara. TIME SPENT: Approximately 65 minutes was spent on admission of this patient, more than half that ti me was spent [id number] with the patient during the interview, physical exam. [id number]/[facility] #: [id number]
[2016-11-01] MEDS: Heparin VIAL(*) 5000 UNITS/ML VIAL (FIVE THOUSAND) SUBCUT SCH ×3 (15:19→21:38)
[2016-11-01] MEDS: Morphine TAB Extended Release (*) 15 MG TAB.ER PO SCH ×2 (15:20→21:37)
[2016-11-01] MEDS: Mometasone/Formoter 200/5 MDI INH SCH (20:18)
[2016-11-01] MEDS ORDERED: Calcium Carbonate CHEW TAB* 500 MG (TUMS) PO ONE (23:04)
[2016-11-02 05:15] LABS: Hematocrit 29 % (42-52); Hemoglobin 9.9 g/dl (14.0-18.0); Mean Corpuscular HGB Conc 34 g/dl (31-36); Mean Corpuscular Hemoglobin 32 pg (27-31); Mean Corpuscular Volume 93 fL (80-94); Mean Platelet Volume 8 um3 (7.4-10.4); Red Blood Count 3.14 10^6/ul (4.0-5.4); Red Cell Distribution Width 16 % (10.5-15); White Blood Count 6.6 10^3/ul (3.5-10.8)
[2016-11-02 05:32] LABS: BUN/Creatinine Ratio 43.3 (8-20); EGFR Non-African American 74.7 (>60); Potassium 4.4 mmol/L (3.5-5.0)
[2016-11-02] MEDS: Heparin VIAL(*) 5000 UNITS/ML VIAL (FIVE THOUSAND) SUBCUT SCH ×2 (05:45→14:30)
[2016-11-02] MEDS: NS 0.9% 1000 ML* 1,000 ML IV SCH (07:18)
[2016-11-02] MEDS: Mometasone/Formoter 200/5 MDI INH SCH (08:04)
[2016-11-02] MEDS: Morphine TAB Extended Release (*) 15 MG TAB.ER PO SCH ×2 (08:39→14:27)
[2016-11-02] MEDS ORDERED: predniSONE TAB* 20 MG PO SCH (09:00)
[2016-11-02] MEDS ORDERED: Tiotropium CAP.INH* CAP.INH/18 MCG INH SCH (09:00)
[2016-11-02] MEDS ORDERED: Aspirin EC Low Dose* 81 MG TAB.EC PO SCH (09:00)
[2016-11-02] MEDS ORDERED: Spiriva Inhaler DEVICE* 1 EACH DEVICE INH ONE (09:00)
--- NOTE | 2016-11-02 15:12 | ECHO ---
Patient: FILIPE MARLOW [facility] Rec#: [id number] : 1935 Date: 11/02/2016 Age: 81y Height: 167.6 cm / 66.0 in Weight: 54.4 kg / 119.9 lbs Sex: M BSA: 1.6 Room#: 432 Admit Date#: 11/01/2016 Type: Inpatient Referring: Luisana Sánchez MD Reading: Kaveh Cortes DO Drone Pilot: Samira Henderson RN RDCS CC: [facility]arrion [facility]ATES,[facility] Indication: Chest pain BP: 108/64 HR: 82 Rhythm: NSR Findings History: HTN, COPD, former smoker, melanoma Technical Comments: The study quality is fair. The study is technically limited due to the patient's history of COPD. The study is technically limited due to the patient's smoking history. Completed at 1330. Left Ventricle: The left ventricular chamber size is normal. There is no left ventricular hypertrophy. Global left ventricular wall motion and contractility are within normal limits. There is normal left ventricular systolic function. The estimated ejection fraction is 60-65%. There is an E to A reversal in the mitral valve flow pattern suggestive of diastolic dysfunction. Left Atrium: The left atrial chamber size is normal. Right Ventricle: The right ventricular chamber size and systolic function are within normal limits. Right Atrium: The right atrial cavity size is normal. Aortic Valve: The aortic valve is trileaflet. The aortic valve leaflets are mildly thickened. There is no evidence of aortic regurgitation. There is no evidence of aortic stenosis. Mitral Valve: Mild mitral annular calcification present. The mitral valve leaflets are mildly thickened. Mild mitral leaflet calcification is visualized. There is trace to mild mitral regurgitation. There is no evidence of mitral stenosis. Tricuspid Valve: The tricuspid valve leaflets are normal. There is trace tricuspid regurgitation. There is evidence of mild pulmonary hypertension. There is no tricuspid stenosis. Pulmonic Valve: The pulmonic valve appears normal in structure and function. There is no evidence of pulmonic regurgitation. There is no pulmonic stenosis. Pericardium: There is no significant pericardial effusion. Aorta: There is no dilatation of the ascending aorta. There is no dilatation of the aortic arch. The aortic root is normal in size. Pulmonary Artery: The main pulmonary artery appears normal. Venous: The inferior vena cava appears normal in size. There is an approximate 50% respiratory change in the inferior vena cava dimension. Conclusions The left ventricular chamber size is normal. There is no left ventricular hypertrophy. There is normal left ventricular systolic function. The estimated ejection fraction is 60-65%. Global left ventricular wall motion and contractility are within normal limits. The left atrial chamber size is normal. The right ventricular chamber size and systolic function are within normal limits. Mild calcification of the mitral annulus and leaflets There is evidence of mild pulmonary hypertension. No prior studies available for comparison at time of interpretation. Measurements Name Value Normal Range RVIDd (AP) 2D 2.8 cm (0.9 - 2.6) RVDdMajor (2D) 3.4 cm (2.2 - 4.4) RAd ISD 4CH 4.3 cm (3.4 - 4.9) RA (A4C)W 3.5 cm (2.9 - 4.6) IVSd (2D) 0.9 cm (0.6 - 1) LVPWd (2D) 0.9 cm (0.6 - 1) LVIDd (2D) 3.8 cm (3.6 - 5.4) LVIDs (2D) 2.7 cm - LV FS (2D) 29 % (25 - 45) Aortic Annulus 2 cm (1.4 - 2.6) Ao root diameter (2D) 2.8 cm (2.1 - 3.5) Ascending Ao 2.9 cm (2.1 - 3.4) LA dimension (AP) 2D 2.8 cm (2.3 - 3.8) LAd ISD 4CH 4.2 cm (2.9 - 5.3) LA ISD 4CH W 3.9 cm (2.5 - 4.5) Name Value Normal Range LA ESV SP 4CH (A/L) 44 ml - LA ESV SP 2CH (A/L) 30 ml - LA ESV BP (A/L) 38 ml - LA ESV BP (A/L) index 23.4 ml/m2 - LA ESV SP 4CH (MOD) 35 ml - LA ESV SP 2CH (MOD) 29 ml - Name Value Normal Range MV E-wave Vmax 0.93 m/sec - MV deceleration time 243 msec - MV A-wave Vmax 1.2 m/sec - MV E:A ratio 0.76 ratio - LV septal e' Vmax 0.08 m/sec - LV lateral e' Vmax 0.07 m/sec - LV E:e' septal ratio 11.6 ratio - LV E:e' lateral ratio 13.3 ratio - Name Value Normal Range AV Vmax 1.2 m/sec - AV VTI 27 cm - AV peak gradient 5.4 mmHg - AV mean gradient 3.1 mmHg - LVOT Vmax 0.76 m/sec - LVOT VTI 22 cm - LVOT peak gradient 2.3 mmHg - LVOT mean gradient 1.4 mmHg - Name Value Normal Range MV Vmax 1.4 m/sec - MV VTI 30 cm - MV peak gradient 8.1 mmHg - MV mean gradient 3.8 mmHg - MV PHT 56 msec - MVA (PHT) 3.9 cm2 - Name Value Normal Range TR Vmax 2.9 m/sec - TR peak gradient 34 mmHg - RAP 8 mmHg - RVSP 42 mmHg - IVC diameter 1.7 cm - Name Value Normal Range PV Vmax 0.62 m/sec -
[2016-11-02 17:17] VITALS: BP 131/72
--- NOTE | 2016-11-03 07:27 | DS ---
CC: Dr. Maier; Dr. Beckett * DISCHARGE SUMMARY: DATE OF ADMISSION: 11/01/16 DATE OF DISCHARGE: 11/02/16 PRIMARY CARE PROVIDER: Dr. Maier. DISCHARGE DIAGNOSES: 1. Shortness of breath, most likely due to mild chronic obstructive pulmonary disease exacerbation. 2. Chest pain, most likely due to chronic obstructive pulmonary disease exacerbation. 3. Left lower lobe nodule at 1.1 cm. SECONDARY DIAGNOSES: 1. Chronic obstructive pulmonary disease, not on oxygen. 2. History of melanoma. 3. History of hypertension. MEDICATIONS AT DISCHARGE: Include: 1. Prednisone 40 mg daily for 4 days total and then stop. 2. Xanax 0.5 mg b.i.d. p.r.n. 3. Albuterol inhaler on a p.r.n. basis. 4. Aspirin 81 mg daily. 5. Atenolol 50 mg daily. 6. Colace 100 mg b.i.d. p.r.n. 7. Dulera 200/5 two puffs inhalation b.i.d. 8. Morphine sulfate 15 mg 3 times a day p.r.n. 9. Spiriva inhalation daily. 10. Oxycodone 5 to 10 mg on a p.r.n. basis. LABORATORY DATA AND STUDIES PERFORMED DURING THE HOSPITAL STAY: Included: On 11/02/16, white blood cell count 6.6, hemoglobin of 9.9, hematocrit of 29, MCV of 93, and platelets of 188. D-dimer was above 1050. Sodium was 137, potassium 4.4, chloride 109, carbon dioxide 29, BUN 42, creatinine 0.97. CT angiogram of the chest obtained on 11/01/16, impression: "no pulmonary artery filling defect to suggest pulmonary embolism. Emphysema. 1.1 cm nodule of the diaphragmatic surface of the left lower lobe. Given the history of malignancy metastatic disease is within the differential as is primary pulmonary parenchymal neoplasm. Recommend attention on short-term interval followup and consideration of combination with PET scan. Small right pleural effusion with minimal compressive atelectasis of the right lung base." Transthoracic echocardiogram obtained on 11/02/16 showed EF of 60 to 65% with global left ventricular motion and contractility within normal limits. There was no left ventricular hypertrophy and the right ventricular thrombus size and systolic functions were within normal limits. With evidence of marked pulmonary hypertension. Patient's creatinine at admission was 1.46. HOSPITALIZATION COURSE: Asad Prince is a 81-year-old male with history of COPD, who presented to the hospital complaining of feeling hard to breathe and chest pressure due to problems with breathing. Due to elevated D-dimer CT angiogram of the chest was performed that showed 1.1 cm left lung pulmonary nodule. The patient was informed about the findings. He was recommended to follow up with his primary care provider in regards to that. Patient was also given the phone number for Dr. Beckett's office, rock loader with recommendation to schedule a followup appointment within the next two weeks. The patient had acute renal failure at admission most likely due to dehydration. There was a complaint of dizziness when changing position prior to admission, which resolved by the time of discharge and intravenous fluid hydration. His creatinine also improved from 1.46 at admission to 0.97 on discharge. It was also notes that patient's hemoglobin was down to 9.9 on day of discharge from 13 at admission, most likely due to hemodilution. Patient's MCV was normocytic. Patient also appeared to be in mild COPD exacerbation and he was treated with prednisone with good results. By the time of discharge his symptoms resolved, dizziness and orthostasis resolved. He also felt better with breathing and he stated that in fact he had problems with his inhalers that were not refilled yet. His inhalers were prescribed to him at discharge as well as 4-day course of prednisone to use at home. Once again patient was informed that the 1.1 cm lung nodule could be cancer and he needs to follow up with his primary care provider and Dr. Beckett in regards to further management. PHYSICAL EXAMINATION AT THE TIME OF DISCHARGE: Blood pressure of 116/64, heart rate of 73 and regular, respiratory rate 20, oxygen saturation 97% on room air, temperature 97.4. General: The patient is a very pleasant 81-year-old male in no acute distress. Alert, awake, and oriented x3. HEENT: Head atraumatic, normocephalic. Eyes: Pupils equal, round, and reactive to light and accommodation. Oropharynx clear. Mucosa moist. Neck: Supple. No JVD. No bruits bilaterally. Cardiovascular: Regular rate and rhythm. No murmur. Respiratory: Clear to auscultation bilaterally. Abdomen: Soft, nontender. Bowel sounds present in all 4 quadrants. Extremities: There is no edema. Pulses +2 bilaterally. There is no clubbing or cyanosis. Neuro Evaluation: Speech clear. Cranial nerves II through XII grossly intact. Motor strength is 5 /5 bilaterally. Please note that this is a short summary of the patient's hospitalization. Please refer to full medical records for details. [id number]/[facility] #: [id number] MTDD
== END 2016-11-02 17:16 | disposition home or self-care (01) ==
LOC: ED 08:22 → MEDTELE 10:23
PROVIDERS: ADMIT Internal Medicine; ATTEND Internal Medicine
DX: J44.1 Chronic obstructive pulmonary disease with (acute) exacerbation (principal); R07.9 Chest pain, unspecified; R91.1 Solitary pulmonary nodule; Z85.820 Personal history of malignant melanoma of skin; I10 Essential (primary) hypertension; R06.02 Shortness of breath; Z79.82 Long term (current) use of aspirin; Z79.891 Long term (current) use of opiate analgesic; Z87.891 Personal history of nicotine dependence; J90 Pleural effusion, not elsewhere classified
CPT/HCPCS: 36415; 71010; 71275; 80048; 80053; 83605; 84484; 85025; 85379; 93005; 93306; 94640; 94760; 96374; 99284; A9270-GY; G0378; J1644; J2930; J7512; Q9967

== ENCOUNTER 2018-04-17 07:02 | Inpatient (IN) | payer MEDICARE, MEDICAID ==
[2018-04-17] MEDS ORDERED: NS 0.9% 1000 ML** 1,000 ML IV ONE (07:29)
--- NOTE | 2018-04-17 07:35 | ED ---
Shortness of Breath - HPI Summary HPI Summary: This patient is an 82 year old M with hx COPD brought in by ambulance to [facility] with a chief complaint of increased SOB since a few days ago. EMS gave the patient and duoneb with oxygen PLANT GUIDE. The patient rates the pain 0/10 in severity. Symptoms aggravated by nothin. Symptoms alleviated by nothing. Patient reports coughing more than usual. Patient uses an albuterol inhaler at home. Patient denies smoking. - History of Current Complaint Chief Complaint: EDShortnessOfBreath Time Seen by Provider: 04/17/18 07:16 Hx Obtained From: Patient Onset/Duration: Gradual Onset, Lasting Days, Still Present Timing: Constant Current Severity: Mild Dyspnea At: Rest Aggrevating Factors: Nothing Alleviating Factors: Nothing Associated Signs & Symptoms: Cough (Nonproductive) - Allergy/Home Medications Allergies/Adverse Reactions: Allergies Allergy/AdvReac Type Severity Reaction Status Date / Time No Known Allergies Allergy Verified 04/24/16 21:16 Home Medications: Home Medications Mirtazapine 7.5 tab PO BEDTIME 04/17/18 [History Confirmed 04/17/18] PMH/Surg Hx/FS Hx/Imm Hx Endocrine/Hematology History: Denies: Hx Diabetes Cardiovascular History: Reports: Hx Hypertension Denies: Hx Pacemaker/ICD Respiratory History: Reports: Hx Chronic Obstructive Pulmonary Disease (COPD) History: Denies: Hx Renal Disease Musculoskeletal History: Reports: Hx Orthopedic Injury - right rotator cuff tear Sensory History: Reports: Hx Contacts or Glasses, Hx Hearing Aid, Hx Hearing Problem - NIKOLSKI, Other Sensory Impairments - Right tear duct removed for cancer Opthamlomology History: Reports: Hx Contacts or Glasses, Other Sensory Impairments - Right tear duct removed for cancer Psychiatric History: Denies: Hx Panic Disorder - Cancer History Cancer Type, Location and Year: MELANOMA-FACE, RIGHT TEAR DUCT REMOVED Hx Chemotherapy: No Hx Radiation Therapy: No - Surgical History Surgery Procedure, Year, and Place: DOUBLE HERNIA; MELANOMA-FACIAL Hx Anesthesia Reactions: No - Immunization History Date of Tetanus Vaccine: unk Date of Influenza Vaccine: unk Immunizations Up to Date: Yes Infectious Disease History: No Infectious Disease History: Denies: Traveled Outside the [place] in Last 30 Days - Family History Known Family History: Negative: Diabetes - Social History Alcohol Use: Occasionally Alcohol Amount: 1 daily Hx Substance Use: No Substance Use Type: Reports: None Substance Use Comment - Amount & Last Used: BID x long time Hx Tobacco Use: Yes Smoking Status (MU): Former Smoker Type: Cigarettes Amount Used/How Often: 1/2 PPD Length of Time of Smoking/Using Tobacco: 55 YEARS Have You Smoked in the Last Year: No Review of Systems Negative: Fever Negative: Epistaxis Positive: Shortness Of Breath, Cough Negative: Vomiting Negative: Headache All Other Systems Reviewed And Are Negative: Yes Physical Exam - Summary Physical Exam Summary: Appearance: The patient is well-nourished in no acute distress and in no acute pain. Skin: The skin is warm and dry and skin color reflects adequate perfusion. HEENT: The head is normocephalic and atraumatic. The pupils are equal and reactive. The conjunctivae are clear and without drainage. Nares are patent and without drainage. Mouth reveals moist mucous membranes and the throat is without erythema and exudate. The external ears are intact. The ear canals are patent and without drainage. The tympanic membranes are intact. Neck: The neck is supple with full range of motion and non-tender. There are no carotid bruits. There is no neck vein distension. Respiratory: Chest is non-tender. Decreased breath sounds. Expiratory wheezes. Increased AP diameter and increased E:I ratio. Cardiovascular: Heart is tahycardic with regular rhythm. There is no murmur or rub auscultated. There is no peripheral edema and pulses are symmetrical and equal. Abdomen: The abdomen is soft and non-tender. There are normal bowel sounds heard in all four quadrants and there is no organomegaly palpated. Musculoskeletal: There is no back tenderness noted. Extremities are non-tender with full range of motion. There is good capillary refill. There is no peripheral edema or calf tenderness elicited. Neurological: Patient is alert and oriented to person, place and time. The patient has symmetrical motor strength in all four extremities. Cranial nerves are grossly intact. Deep tendon reflexes are symmetrical and equal in all four extremities. Psychiatric: The patient has an appropriate affect and does not exhibit any anxiety or depression. Triage Information Reviewed: Yes Vital Signs On Initial Exam: Initial Vitals Temp Pulse Resp BP Pulse Ox 98.3 F 105 22 158/112 94 04/17/18 07:06 04/17/18 07:06 04/17/18 07:06 04/17/18 07:06 04/17/18 07:06 Vital Signs Reviewed: Yes Diagnostics - Vital Signs Vital Signs Temp Pulse Resp BP Pulse Ox 04/17/18 07:06 98.3 F 105 22 158/112 94 - Laboratory Result Diagrams: 04/17/18 07:32 04/17/18 07:32 Lab Statement: Any lab studies that have been ordered have been reviewed, and results considered in the medical decision making process. - Radiology CXR Radiology Interpretation Completed By: Radiologist Summary of Radiographic Findings: IMPRESSION: 1. SMALL RIGHT BASILAR INFILTRATE. 2. FINDINGS CONSISTENT WITH COPD. Dr. White has reviewed this report - EKG 07:43 Cardiac Rate: Tachycardia - at 100 bpm EKG Rhythm: Sinus Tachycardia ST Segment: Normal Ectopy: None Summary of EKG Findings: Sinus tachycardia at 100 bpm, nml ST, no ectopy, no STEMI Course/Dx - Course Course Of Treatment: Mr. Prince presented by ambulance complaining of shortness of breath. He has a history of COPD and has been using his medications more frequently. He was given a DuoNeb treatment in the ambulance which gave him some improvement. On arrival he was in some respiratory distress with some tachycardia, decreased breath sounds and marginal pulse ox. He was given duo nebs and Solu-Medrol here with some improvement. His chest x-ray revealed a right-sided infiltrate and he was given Levaquin. He did not meet septic criteria but I did not feel that he was safe for discharge. I spoke with Dr. Steele of the hospitalists and he agreed to admit. - Diagnoses Provider Diagnoses: Pneumonia, COPD exacerbation - Physician Notifications Discussed Care of Patient With: Fly Steele Time Discussed With Above Provider: 10:02 Instructed by Provider To: Admit As Inpatient Discharge - Sign-Out/Discharge Documenting (check all that apply): Patient Departure - admit to [facility] Patient Received Moderate/Deep Sedation with Procedure: No - Discharge Plan Condition: Stable Disposition: ADMITTED TO [facility] - Billing Disposition and Condition Condition: STABLE Disposition: Admitted to [facility] - Attestation Statements Document Initiated by Scribe: Yes Documenting Scribe: Keena Gray Provider For Whom Scribe is Documenting (Include Credential): Ben White MD Scribe Attestation: IKeena, scribed for Ben White MD on 04/17/18 at 1501. Scribe Documentation Reviewed: Yes Provider Attestation: The documentation as recorded by the scribe, Keena Gray accurately reflects the service I personally performed and the decisions made by me, Ben White MD Status of Scribe Document: Viewed
[2018-04-17] MEDS ORDERED: Albuterol/Ipratropium NEB.SOL* Albuterol 2.5 MG/Ipratropium 0.5 MG 3 ML INH ONE (08:02)
[2018-04-17] MEDS ORDERED: methylPREDNISolone 125 MG* 2 ML VIAL IV ONE (08:02)
[2018-04-17 08:08] LABS: ABS Basophils 0 10^3/ul (0-0.2); ABS Eosinophils 0.8 10^3/ul (0-0.6); ABS Lymphocytes 0.9 10^3/ul (1.0-4.8); ABS Monocytes 0.5 10^3/ul (0-0.8); ABS Neutrophils 5.6 10^3/ul (1.5-7.7); ABS Nucleated RBC 0 10^3/ul; Eosinophil % 10.7 %; Hematocrit 37 % (42-52); Hemoglobin 12.3 g/dl (14.0-18.0); Lymphocyte % 11.4 %; Mean Corpuscular HGB Conc 33 g/dl (31-36); Mean Corpuscular Hemoglobin 30 pg (27-31); Mean Corpuscular Volume 91 fL (80-94); Mean Platelet Volume 7.1 fL (7.4-10.4); Nucleated Red Blood Cells % 0; Platelet Count 328 10^3/ul (150-450); Red Blood Count 4.08 10^6/ul (4.00-5.40); Red Cell Distribution Width 15 % (10.5-15); White Blood Count 7.9 10^3/ul (3.5-10.8)
[2018-04-17 08:22] LABS: INR 1.01 (0.77-1.02)
[2018-04-17 08:28] LABS: Albumin 3.7 g/dL (3.2-5.2); BUN/Creatinine Ratio 27.6 (8-20); C Reactive Protein 65.84 mg/L (<8.01); Calcium 9.5 mg/dL (8.6-10.3); EGFR African American 102.2 (>60); EGFR Non-African American 84.4 (>60); Globulin 3.6 g/dL (2-4); Potassium 4.2 mmol/L (3.5-5.0); Total Bilirubin 0.5 mg/dL (0.2-1.0); Total Protein 7.3 g/dL (6.4-8.9)
[2018-04-17 08:29] LABS: Troponin I 0.01 ng/mL (<0.04)
[2018-04-17] MEDS ORDERED: Levofloxacin 750 MG IVPREMIX(* 750 MG/150 ML BAG IVPB ONE (09:04)
[2018-04-17] MEDS ORDERED: NS 0.9% 1000 ML** 1,000 ML IV SCH (12:00)
[2018-04-17] MEDS ORDERED: Albuterol/Ipratropium NEB.SOL* Albuterol 2.5 MG/Ipratropium 0.5 MG 3 ML INH PRN (12:01)
[2018-04-17] MEDS ORDERED: Acetaminophen TAB* 325 MG PO PRN (12:03)
[2018-04-17] MEDS ORDERED: Ondansetron INJ* 2 MG/ML VIAL IV PRN (12:03)
[2018-04-17] MEDS ORDERED: Spiriva Inhaler DEVICE* 1 EACH DEVICE SCH (13:00)
--- NOTE | 2018-04-17 13:33 | HP ---
ADMISSION HISTORY AND PHYSICAL: DATE OF ADMISSION: 04/17/18 PRIMARY CARE PROVIDER: Primary care provider is listed as Dr. Maier; however, patient reports he has no primary care physician. HEALTHCARE PROXY: Sister, Dara. CODE STATUS: DNR. A new MOLST form was completed at the patient's request. HISTORY OBTAINED: From interview with the patient, review of past medical records. RELIABILITY: Poor. CHIEF COMPLAINT: Shortness of breath. HISTORY OF PRESENT ILLNESS: This is an 82-year-old man with past medical history of COPD. Reports for the last week he has had a cold consisting of a cough, rhinorrhea, runny eyes, and some lightheadedness associated with shortness of breath, which has been increasing over the last week. He has had little phlegm production. No body aches. No fever. No chest pain. He reports today his roommate activated EMS because he asked him to. However, the reason that he asked him to activate EMS is a little unclear; however, it appears to be his worsening shortness of breath. Per EMS reports, they were called for worsening shortness of breath over the last 2 days. Patient denies any urinary symptoms as well as diarrhea or constipation. No headaches, nausea , vomiting, loss of consciousness, near loss of consciousness. He reports that he takes no medications and sees no physician. PAST MEDICAL HISTORY: Includes: 1. COPD. 2. Hypertension. 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 4. Melanoma. 5. Chronic pain, although he takes no medications. MEDICATIONS: He reports he takes no medications. ALLERGIES: No known drug allergies. FAMILY HISTORY: Includes father with CAD. SOCIAL HISTORY: He reports a 59-urdd-baol history of smoking, which is less than previously reported 55-year history. He reports he quit 5 years prior. He denies any alcohol. He lives with a friend. REVIEW OF SYSTEMS: As per HPI. Otherwise, all other systems are negative. PHYSICAL EXAMINATION GENERAL: He is a thin and frail-appearing man, older than stated age, in no apparent distress, lying flat in bed until he is helped upright. VITAL SIGNS: When seen by this author, 136/77, heart rate 100, respiratory rate is 20, he is 93% on 2 L oxygen. HEENT: His oropharynx is clear. He has dry mucous membranes. Sclerae are anicteric. NECK: He has non-elevated JVD. No supraclavicular or cervical lymphadenopathy. LUNGS: His lungs have rhonchi in the right base and expiratory wheezes throughout. HEART: He has regular rhythm; it is tachycardic. ABDOMEN: Soft and nontender. EXTREMITIES: Warm and well perfused. He has less than 2 seconds cap refill. NEUROLOGIC: He is alert and oriented x2 to hospital and himself, but not the year. He also cannot name who the current president is. He has immediate 3- word recall and 2-word recall at 3 minutes. He does seem confused at other times including asking if he will have to be transported to the hospital in order to be admitted after already endorsing that he knew he was in the hospital on initial orientation exam. His cranial nerves are intact, except for right eye ptosis. His strength is intact. PSYCH: He has no apparent anxiety, agitation, or depression. LABORATORY DATA: Labs Reviewed: Notable for hemoglobin 12.3. BUN 24, creatinine 0.87. CRP is 65. Data reviewed: EKG sinus tachycardia, ventricular rate of 100, QTc is 442. No ST or T-wave changes. Chest x-ray, impression: Small right basilar infiltrate and findings consistent with COPD. ASSESSMENT AND PLAN: This is an 82-year-old man presenting with increasing shortness of breath over the last week in the setting of what sounds like upper respiratory infection. Chest x-ray findings suspicious for pneumonia. 1. Acute hypoxic respiratory failure - now requiring 2 L oxygen, suspect in the setting of combined pneumonia causing chronic obstructive pulmonary disease exacerbation. Patient received Levaquin in the emergency room. We will transition to ceftriaxone, azithromycin starting tomorrow. Normal saline 1 L at this time as well as continue IV steroids, methylprednisolone 4 mg twice daily starting tomorrow. He has received 125 mg methylprednisolone today. Continue inhalers for COPD, Dulera as well as start Spiriva, breakthrough DuoNebs as needed for shortness of breath. Check Strep pneumoniae as well as urine Legionella. 2. Chronic obstructive pulmonary disease, in exacerbation. Treatment as above including antibiotics, steroids, Dulera, DuoNebs, and Spiriva. Patient is currently on no controlled medications at home, presumably because he does not follow with any primary care physician. 3. Hypertension, reported per past medical history, currently on no medications. Monitor and initiate medication as needed. 4. Suspicion for dementia. At risk for hospital-acquired delirium given current infection as well as early underlying dementia. Maintain day and night differentiation, frequent re-orientation. 5. DVT prophylaxis, heparin subcu. [id number]/[facility] #: [id number] [facility]PITALPatricia
[2018-04-17] MEDS: Tiotropium CAP.INH* CAP.INH/18 MCG (USE ORDER SET !) INH SCH (13:44)
[2018-04-17] MEDS: Heparin VIAL(*) 5000 UNITS/ML VIAL (FIVE THOUSAND) SUBCUT SCH ×2 (13:44→20:05)
[2018-04-17] MEDS: Mometasone/Formoter 200/5 MDI INH SCH (19:58)
[2018-04-17] MEDS ORDERED: methylPREDNISolone SOD 40 MG* 1 ML VIAL ONE (20:08)
[2018-04-18] MEDS ORDERED: Magnesium Hydroxide LIQ* 30 ML UDC PO PRN (02:43)
[2018-04-18] MEDS ORDERED: Senna TAB PO PRN (02:43)
[2018-04-18] MEDS ORDERED: Polyethylene Glycol 3350* 17 GM PACKET PO PRN (02:43)
[2018-04-18] MEDS: Heparin VIAL(*) 5000 UNITS/ML VIAL (FIVE THOUSAND) SUBCUT SCH ×3 (05:24→21:05)
[2018-04-18] MEDS: Docusate CAP* 100 MG PO SCH ×2 (07:58→21:05)
[2018-04-18] MEDS: cefTRIAXone(*) 1 GM in NS 0.9% 50 ML* 50 ML IVPB SCH (07:58)
[2018-04-18] MEDS: methylPREDNISolone SOD 40 MG* 1 ML VIAL IV SCH ×2 (07:58→21:05)
[2018-04-18] MEDS: Tiotropium CAP.INH* CAP.INH/18 MCG (USE ORDER SET !) INH SCH (09:35)
[2018-04-18] MEDS: Mometasone/Formoter 200/5 MDI INH SCH ×2 (09:35→20:32)
[2018-04-18] MEDS ORDERED: Azithromycin IV(*) 500 MG in NS 0.9% 250 ML* 250 ML IVPB SCH (13:00)
--- NOTE | 2018-04-18 15:59 | PN ---
Subjective Date of Service: 04/18/18 Interval History: SOB improved Denies cough No N/V, LH Objective Active Medications: Acetaminophen (Tylenol Tab*) 650 mg PO Q4H PRN PRN Reason: FEVER/PAIN Albuterol/Ipratropium (Duoneb (Albuterol 2.5 Mg/Ipratropium 0.5 Mg)) 1 neb INH Q4H PRN PRN Reason: SOB/WHEEZING Last Admin: 04/18/18 09:33 Dose: 1 neb Device (Tiotropium Inhaler Device*) 1 each .SEE ORDER .USE w/ SPIRIVA CAPS [facility] Docusate Sodium (Colace Cap*) 100 mg PO BID [facility] Last Admin: 04/18/18 07:58 Dose: 100 mg Heparin Sodium (Porcine) (Heparin Vial(*)) 5,000 units SUBCUT Q8HR [facility] Last Admin: 04/18/18 13:16 Dose: 5,000 units Ceftriaxone Sodium 1 gm/ (Sodium Chloride) 50 mls @ 200 mls/hr IVPB Q24H [facility] Last Admin: 04/18/18 07:58 Dose: 200 mls/hr Azithromycin 250 mg/ Sodium (Chloride) 250 mls @ 250 mls/hr IVPB Q24H [facility] Stop: 04/22/18 13:59 Magnesium Hydroxide (Milk Of [place] Liq*) 30 ml PO BID PRN PRN Reason: CONSTIPATION Methylprednisolone Sodium Succinate (Solu-Medrol 40 Mg) 40 mg IV Q12H [facility] Last Admin: 04/18/18 07:58 Dose: 40 mg Mometasone Furoate/Formoterol Fumar (Dulera 200/5 Mdi*) 2 puff INH BID [facility] Last Admin: 04/18/18 09:35 Dose: 2 puff Ondansetron HCl (Zofran Inj*) 4 mg IV Q4H PRN PRN Reason: NAUSEA/VOMITING Polyethylene Glycol/Electrolytes (Miralax*) 17 gm PO DAILY PRN PRN Reason: CONSTIPATION Senna (Senokot Tab*) 1 tab PO BEDTIME PRN PRN Reason: CONSTIPATION Tiotropium [place] (Spiriva Cap.Inh*) 1 cap INH DAILY [facility] Last Admin: 04/18/18 09:35 Dose: 1 cap Vital Signs - 8 hr 04/18/18 04/18/18 04/18/18 08:12 09:37 11:00 Temperature 97.0 F 98.1 F Pulse Rate 81 92 Respiratory 18 16 21 Rate Blood Pressure 114/68 121/69 (mmHg) O2 Sat by Pulse 99 92 Oximetry Oxygen Devices in Use Now: Nasal Cannula - 2L Appearance: frail appearing, nad Eyes: No Scleral Icterus, PERRLA Ears/Nose/Mouth/Throat: NL Teeth, Lips, Gums, Clear Oropharnyx, - - poor dentintion Neck: NL Appearance and Movements; NL JVP, Trachea Midline Respiratory: Symmetrical Chest Expansion and Respiratory Effort - rales in right base, diffuse expiratory wheeze Cardiovascular: RRR Abdominal: NL Sounds; No Tenderness; No Distention, No Hepatosplenomegaly Lymphatic: No Cervical Adenopathy Extremities: No Edema Neurological: - - aox3 Result Diagrams: 04/17/18 07:32 04/17/18 07:32 Microbiology and Other Data: Microbiology 04/18/18 05:30 Legionella Urinary Antigen - Final Urine Negative Legionella Antigen Streptococcus pneumoniae Ag Screen - Final Negative S. pneumo Antigen 04/17/18 07:40 Aerobic Blood Culture - Preliminary Blood Venous No Growth Day 1 04/17/18 07:32 Aerobic Blood Culture - Preliminary Blood Venous No Growth Day 1 Anaerobic Blood Culture - Preliminary No Growth Day 1 04/17/18 07:32 Aerobic Blood Culture - Preliminary Blood Venous No Growth Day 1 Anaerobic Blood Culture - Preliminary No Growth Day 1 Assess/Plan/Problems-Billing Assessment: 82 M admitted with PNA and suspected COPD exacerbation - Patient Problems (1) PNA (pneumonia) Comment: CTX/azithro (2) COPD (chronic obstructive pulmonary disease) Comment: In association with PNA IV steroids, dulera, spiriva no PCP, takes no meds at home, I would favor more complete improvement before discharge and not relying on his medication adherence on discharge (3) DVT prophylaxis Comment: HSQ
[2018-04-19] MEDS: Heparin VIAL(*) 5000 UNITS/ML VIAL (FIVE THOUSAND) SUBCUT SCH ×3 (05:54→21:29)
[2018-04-19] MEDS: Tiotropium CAP.INH* CAP.INH/18 MCG (USE ORDER SET !) INH SCH (07:51)
[2018-04-19] MEDS: Mometasone/Formoter 200/5 MDI INH SCH ×2 (07:51→19:33)
[2018-04-19] MEDS: methylPREDNISolone SOD 40 MG* 1 ML VIAL IV SCH ×2 (09:51→21:29)
[2018-04-19] MEDS: Docusate CAP* 100 MG PO SCH ×2 (09:51→21:29)
[2018-04-19] MEDS: cefTRIAXone(*) 1 GM in NS 0.9% 50 ML* 50 ML IVPB SCH (09:51)
[2018-04-19] MEDS: Azithromycin IV(*) 250 MG in NS 0.9% 250 ML* 250 ML IVPB SCH (13:19)
--- NOTE | 2018-04-19 13:52 | PN ---
Subjective Date of Service: 04/19/18 Interval History: HOSPITALIST PROGRESS NOTE Patient seen and examined at bedside. Care reviewed and d/w Isabella Curran RN. Family History: Unchanged from Admission Social History: Unchanged from Admission Past Medical History: Unchanged from Admission Objective Active Medications: Acetaminophen (Tylenol Tab*) 650 mg PO Q4H PRN PRN Reason: FEVER/PAIN Albuterol/Ipratropium (Duoneb (Albuterol 2.5 Mg/Ipratropium 0.5 Mg)) 1 neb INH Q4H PRN PRN Reason: SOB/WHEEZING Last Admin: 04/18/18 09:33 Dose: 1 neb Device (Tiotropium Inhaler Device*) 1 each .SEE ORDER .USE w/ SPIRIVA CAPS [facility] Docusate Sodium (Colace Cap*) 100 mg PO BID [facility] Last Admin: 04/19/18 09:51 Dose: 100 mg Heparin Sodium (Porcine) (Heparin Vial(*)) 5,000 units SUBCUT Q8HR [facility] Last Admin: 04/19/18 13:19 Dose: 5,000 units Ceftriaxone Sodium 1 gm/ (Sodium Chloride) 50 mls @ 200 mls/hr IVPB Q24H [facility] Last Admin: 04/19/18 09:51 Dose: 200 mls/hr Azithromycin 250 mg/ Sodium (Chloride) 250 mls @ 250 mls/hr IVPB Q24H [facility] Stop: 04/22/18 13:59 Last Admin: 04/19/18 13:19 Dose: 250 mls/hr Magnesium Hydroxide (Milk Of [place]mal[place] Liq*) 30 ml PO BID PRN PRN Reason: CONSTIPATION Methylprednisolone Sodium Succinate (Solu-Medrol 40 Mg) 40 mg IV Q12H [facility] Last Admin: 04/19/18 09:51 Dose: 40 mg Mometasone Furoate/Formoterol Fumar (Dulera 200/5 Mdi*) 2 puff INH BID [facility] Last Admin: 04/19/18 07:51 Dose: 2 puff Ondansetron HCl (Zofran Inj*) 4 mg IV Q4H PRN PRN Reason: NAUSEA/VOMITING Polyethylene Glycol/Electrolytes (Miralax*) 17 gm PO DAILY PRN PRN Reason: CONSTIPATION Senna (Senokot Tab*) 1 tab PO BEDTIME PRN PRN Reason: CONSTIPATION Tiotropium [place] (Spiriva Cap.Inh*) 1 cap INH DAILY [facility] Last Admin: 04/19/18 07:51 Dose: 1 cap Vital Signs - 8 hr 04/19/18 04/19/18 04/19/18 07:22 08:00 10:59 Temperature 97.2 F 98.0 F Pulse Rate 101 96 Respiratory 16 16 16 Rate Blood Pressure 148/89 142/84 (mmHg) O2 Sat by Pulse 93 91 Oximetry Oxygen Devices in Use Now: None Appearance: Elderly gentleman with disheveled appearance lying in bed in NAD Eyes: No Scleral Icterus Ears/Nose/Mouth/Throat: Mucous Membranes Moist Neck: Trachea Midline Respiratory: Symmetrical Chest Expansion and Respiratory Effort, - - BS+ bilaterally diminished with scattered rhonchi Cardiovascular: RRR - Normal S1 and S2 Abdominal: NL Sounds; No Tenderness; No Distention Neurological: Alert and Oriented x 3, NL Muscle Strength and Tone Result Diagrams: 04/17/18 07:32 04/17/18 07:32 Assess/Plan/Problems-Billing Assessment: Mr. Prince is an 82 yo M with PMH of COPD, HTN, melanoma, who presented with c/o dyspnea, found to have COPD exacerbation secondary to pneumonia. - Patient Problems (1) Acute hypoxemic respiratory failure Comment: - Secondary to COPD exacerbation and pneumonia - patient has new oxygen requirements. - Improving - titrate supplemental O2 down as tolerated. (2) COPD exacerbation Comment: - Secondary to pneumonia. - Continue Ceftriaxone, Zithromax, steroids and brochodilators. (3) PNA (pneumonia) Comment: - Legionella and pneumococcal Ags are negative, blood culture shows no growth. - Continue Ceftriaxone and Zithromax. (4) DVT prophylaxis Comment: - SQ heparin. Status and Disposition: Inpatient.
[2018-04-20] MEDS: Heparin VIAL(*) 5000 UNITS/ML VIAL (FIVE THOUSAND) SUBCUT SCH ×3 (06:04→21:47)
[2018-04-20] MEDS: Tiotropium CAP.INH* CAP.INH/18 MCG (USE ORDER SET !) INH SCH (07:34)
[2018-04-20] MEDS: Mometasone/Formoter 200/5 MDI INH SCH ×2 (07:35→20:22)
[2018-04-20] MEDS: Docusate CAP* 100 MG PO SCH ×2 (08:09→20:19)
[2018-04-20] MEDS: cefTRIAXone(*) 1 GM in NS 0.9% 50 ML* 50 ML IVPB SCH (08:09)
[2018-04-20] MEDS: methylPREDNISolone SOD 40 MG* 1 ML VIAL IV SCH (08:10)
[2018-04-20] MEDS: Azithromycin IV(*) 250 MG in NS 0.9% 250 ML* 250 ML IVPB SCH (14:20)
--- NOTE | 2018-04-20 15:50 | PN ---
Subjective Date of Service: 04/20/18 Interval History: HOSPITALIST PROGRESS NOTE Patient seen and examined at bedside. Care reviewed and d/w Isabella Curran RN. He feels well today, breathing is improved, but not yet back to baseline. When asked yesterday if needed anything to go home today he denies, but today he tells me [place] cannot go [place]". His plan is to go to a friend's home ([place]). Family History: Unchanged from Admission Social History: Unchanged from Admission Past Medical History: Unchanged from Admission Objective Active Medications: Acetaminophen (Tylenol Tab*) 650 mg PO Q4H PRN PRN Reason: FEVER/PAIN Albuterol/Ipratropium (Duoneb (Albuterol 2.5 Mg/Ipratropium 0.5 Mg)) 1 neb INH Q4H PRN PRN Reason: SOB/WHEEZING Last Admin: 04/18/18 09:33 Dose: 1 neb Device (Tiotropium Inhaler Device*) 1 each .SEE ORDER .USE w/ SPIRIVA CAPS [facility] Docusate Sodium (Colace Cap*) 100 mg PO BID [facility] Last Admin: 04/20/18 08:09 Dose: 100 mg Heparin Sodium (Porcine) (Heparin Vial(*)) 5,000 units SUBCUT Q8HR [facility] Last Admin: 04/20/18 14:20 Dose: 5,000 units Ceftriaxone Sodium 1 gm/ (Sodium Chloride) 50 mls @ 200 mls/hr IVPB Q24H [facility] Last Admin: 04/20/18 08:09 Dose: 200 mls/hr Azithromycin 250 mg/ Sodium (Chloride) 250 mls @ 250 mls/hr IVPB Q24H [facility] Stop: 04/22/18 13:59 Last Admin: 04/20/18 14:20 Dose: 250 mls/hr Magnesium Hydroxide (Milk Of Magnesia Liq*) 30 ml PO BID PRN PRN Reason: CONSTIPATION Methylprednisolone Sodium Succinate (Solu-Medrol 40 Mg) 40 mg IV Q12H [facility] Last Admin: 04/20/18 08:10 Dose: 40 mg Mometasone Furoate/Formoterol Fumar (Dulera 200/5 Mdi*) 2 puff INH BID [facility] Last Admin: 04/20/18 07:35 Dose: 2 puff Ondansetron HCl (Zofran Inj*) 4 mg IV Q4H PRN PRN Reason: NAUSEA/VOMITING Polyethylene Glycol/Electrolytes (Miralax*) 17 gm PO DAILY PRN PRN Reason: CONSTIPATION Senna (Senokot Tab*) 1 tab PO BEDTIME PRN PRN Reason: CONSTIPATION Tiotropium [place] (Spiriva Cap.Inh*) 1 cap INH DAILY [facility] Last Admin: 04/20/18 07:34 Dose: 1 cap Vital Signs - 8 hr 04/20/18 04/20/18 08:00 11:30 Pulse Rate 82 Respiratory 20 19 Rate Blood Pressure 167/90 (mmHg) O2 Sat by Pulse 95 Oximetry Oxygen Devices in Use Now: None Appearance: Elderly disheveled gentleman lying in bed in NAD. Eyes: No Scleral Icterus Ears/Nose/Mouth/Throat: Mucous Membranes Moist Neck: Trachea Midline Respiratory: Symmetrical Chest Expansion and Respiratory Effort, - - BS+ bilaterally diminished with no added sounds Cardiovascular: RRR - Normal S1 and S2 Neurological: Alert and Oriented x 3, NL Muscle Strength and Tone Result Diagrams: 04/17/18 07:32 04/17/18 07:32 Assess/Plan/Problems-Billing Assessment: Mr. Prince is an 82 yo M with PMH of COPD, HTN, melanoma, who presented with c/o dyspnea, found to have COPD exacerbation secondary to pneumonia. - Patient Problems (1) Acute hypoxemic respiratory failure Comment: - Secondary to COPD exacerbation and pneumonia - patient has new oxygen requirements. - Improving - titrate supplemental O2 down as tolerated. (2) COPD exacerbation Comment: - Secondary to pneumonia. - Change Ceftriaxone, Zithromax, steroids to PO and continue brochodilators. (3) PNA (pneumonia) Comment: - Legionella and pneumococcal Ags are negative, blood culture shows no growth. - Change Ceftriaxone and Zithromax to PO. (4) DVT prophylaxis Comment: - SQ heparin. Status and Disposition: Inpatient. Stable for discharge - to assist with safe d/c plan.
[2018-04-20] MEDS ORDERED: Albuterol HFA INHALER* 8 gm MDI INH PRN (15:52)
[2018-04-20] MEDS: ceFUROXime TAB(*) 250 MG PO SCH (20:19)
[2018-04-21] MEDS: Heparin VIAL(*) 5000 UNITS/ML VIAL (FIVE THOUSAND) SUBCUT SCH ×3 (05:42→22:46)
[2018-04-21] MEDS: Mometasone/Formoter 200/5 MDI INH SCH ×2 (08:14→20:17)
[2018-04-21] MEDS: Tiotropium CAP.INH* CAP.INH/18 MCG (USE ORDER SET !) INH SCH (08:14)
[2018-04-21] MEDS: Docusate CAP* 100 MG PO SCH ×2 (09:03→22:46)
[2018-04-21] MEDS: ceFUROXime TAB(*) 250 MG PO SCH ×2 (09:03→22:46)
[2018-04-21] MEDS: predniSONE TAB* 20 MG PO SCH (09:04)
[2018-04-21] MEDS: Azithromycin TAB* 250 MG PO SCH (13:28)
--- NOTE | 2018-04-21 16:13 | PN ---
Subjective Date of Service: 04/21/18 Interval History: HOSPITALIST PROGRESS NOTE Patient seen and examined at bedside. Care reviewed and d/w Danielle Ahn RN. He offers no new complaints. No longer requires supplemental O2. Family History: Unchanged from Admission Social History: Unchanged from Admission Past Medical History: Unchanged from Admission Objective Active Medications: Acetaminophen (Tylenol Tab*) 650 mg PO Q4H PRN PRN Reason: FEVER/PAIN Albuterol (Ventolin Hfa Inhaler*) 2 puff INH Q4H PRN PRN Reason: SOB/WHEEZING Albuterol/Ipratropium (Duoneb (Albuterol 2.5 Mg/Ipratropium 0.5 Mg)) 1 neb INH Q4H PRN PRN Reason: SOB/WHEEZING Last Admin: 04/18/18 09:33 Dose: 1 neb Azithromycin (Zithromax Tab*) 250 mg PO DAILY@1300 [facility] Last Admin: 04/21/18 13:28 Dose: 250 mg Cefuroxime Axetil (Ceftin Tab(*)) 250 mg PO BID [facility] Last Admin: 04/21/18 09:03 Dose: 250 mg Device (Tiotropium Inhaler Device*) 1 each .SEE ORDER .USE w/ SPIRIVA CAPS [facility] Docusate Sodium (Colace Cap*) 100 mg PO BID [facility] Last Admin: 04/21/18 09:03 Dose: 100 mg Heparin Sodium (Porcine) (Heparin Vial(*)) 5,000 units SUBCUT Q8HR [facility] Last Admin: 04/21/18 13:28 Dose: 5,000 units Magnesium Hydroxide (Milk Of Magnesia Liq*) 30 ml PO BID PRN PRN Reason: CONSTIPATION Mometasone Furoate/Formoterol Fumar (Dulera 200/5 Mdi*) 2 puff INH BID [facility] Last Admin: 04/21/18 08:14 Dose: 2 puff Polyethylene Glycol/Electrolytes (Miralax*) 17 gm PO DAILY PRN PRN Reason: CONSTIPATION Prednisone (Deltasone Tab*) 40 mg PO DAILY [facility] Last Admin: 04/21/18 09:04 Dose: 40 mg Senna (Senokot Tab*) 1 tab PO BEDTIME PRN PRN Reason: CONSTIPATION Tiotropium [place] (Spiriva Cap.Inh*) 1 cap INH DAILY [facility] Last Admin: 04/21/18 08:14 Dose: 1 cap Vital Signs - 8 hr 04/21/18 04/21/18 04/21/18 08:17 09:17 09:18 Temperature Pulse Rate Respiratory 16 20 20 Rate Blood Pressure (mmHg) O2 Sat by Pulse Oximetry 04/21/18 04/21/18 11:29 15:28 Temperature 97.2 F 98.0 F Pulse Rate 83 94 Respiratory 22 26 Rate Blood Pressure 157/92 136/82 (mmHg) O2 Sat by Pulse 92 93 Oximetry Oxygen Devices in Use Now: None Appearance: Elderly gentleman with disheveled appearance, sitting up in bed in NAD. Eyes: No Scleral Icterus Ears/Nose/Mouth/Throat: Mucous Membranes Moist Neck: Trachea Midline Respiratory: Symmetrical Chest Expansion and Respiratory Effort, - - BS+ bilaterally diminished with no added sounds Cardiovascular: RRR - Normal S1 and S2 Neurological: Alert and Oriented x 3, NL Muscle Strength and Tone Result Diagrams: 04/17/18 07:32 04/17/18 07:32 Assess/Plan/Problems-Billing Assessment: Mr. Prince is an 82 yo M with PMH of COPD, HTN, melanoma, who presented with c/o dyspnea, found to have COPD exacerbation secondary to pneumonia. - Patient Problems (1) Acute hypoxemic respiratory failure Comment: - Secondary to COPD exacerbation and pneumonia. - Resolved. (2) COPD exacerbation Comment: - Secondary to pneumonia. - Continue Cefuroxime, Zithromax, steroids and brochodilators. (3) PNA (pneumonia) Comment: - Legionella and pneumococcal Ags are negative, blood culture shows no growth. - Continue Cefuroxime and Zithromax. (4) DVT prophylaxis Comment: - SQ heparin. Status and Disposition: Inpatient. Stable for discharge - CM assistance appreciated - plan for SNF placement.
[2018-04-22] MEDS: Heparin VIAL(*) 5000 UNITS/ML VIAL (FIVE THOUSAND) SUBCUT SCH ×2 (07:00→14:47)
[2018-04-22] MEDS: Tiotropium CAP.INH* CAP.INH/18 MCG (USE ORDER SET !) INH SCH (08:48)
[2018-04-22] MEDS: Mometasone/Formoter 200/5 MDI INH SCH (08:48)
[2018-04-22] MEDS: Docusate CAP* 100 MG PO SCH (09:49)
[2018-04-22] MEDS: ceFUROXime TAB(*) 250 MG PO SCH (09:49)
[2018-04-22] MEDS: predniSONE TAB* 20 MG PO SCH (09:49)
[2018-04-22] MEDS: Azithromycin TAB* 250 MG PO SCH (13:20)
[2018-04-22 14:19] VITALS: BP 105/92
--- NOTE | 2018-04-22 21:15 | DS ---
CC: Dr. Kelle Dawson * DISCHARGE SUMMARY: DATE OF ADMISSION: 04/17/18 DATE OF DISCHARGE: 04/22/18 PRIMARY CARE PROVIDER: Dr. Kelle Dawson. DISCHARGE DIAGNOSES: 1. Acute hypoxemic respiratory failure. 2. Acute chronic obstructive pulmonary disease exacerbation. 3. Community-acquired pneumonia. SECONDARY DIAGNOSES: 1. Chronic obstructive pulmonary disease. 2. Hypertension. 3. Prior history of melanoma. MEDICATION LIST: 1. Albuterol HFA 2 puffs inhaled 4 times a day p.r.n. 2. Azithromycin 250 mg p.o. daily for 1 more day. 3. Cefuroxime 250 mg p.o. b.i.d. for 2 more days. 4. Dulera 200/5 two puffs inhaled b.i.d. 5. Prednisone taper as follows: 40 mg p.o. daily for 3 days, then 30 mg for 3 days, 20 mg for 3 days, 10 mg for 3 days, 5 mg for 3 days, then stop. 6. Spiriva 1 capsule inhaled daily. HOSPITAL COURSE: Mr. Prince is an 82-year-old male with a past medical history as stated above, who presents to the emergency room with complaints of shortness of breath and cough. The symptoms have started the week prior to admission and as his symptoms worsened, EMS was called. For more details about his presentation, I refer you to his history and physical. In the emergency room, the patient had a chest x-ray that showed a small right basilar infiltrate compatible with pneumonia. The patient was admitted under the impression of COPD exacerbation secondary to pneumonia and also causing acute hypoxemic respiratory failure. He was admitted to the medical floor and started on antibiotics, bronchodilators , and steroids with progressive improvement of his symptoms. The patient was felt to be medically stable for discharge on 04/20/18, but we had some difficulty finding family members and roommates to try and get him home. The patient was transitioned to fdc care and there was some entertainment of intermediate facility placement, but later on his sister showed up and the patient was discharged home. Legionella and pneumococcal antigens were negative as well as blood cultures. PHYSICAL EXAMINATION: Vital Signs: Temperature 98.5, heart rate 92, respiratory rate 16, oxygen saturation 94% on room air, and blood pressure is 105/92. General: The patient is an elderly gentleman with disheveled appearance, sitting up in bed, in no acute distress. CVS: Normal S1, S2. Regular rate and rhythm. Chest: Breath sounds bilaterally diminished with no added sounds. Neuro: He is alert and oriented x3. Able to move all 4 extremities. A little hard of hearing. DIET: Heart healthy diet. ACTIVITIES: As tolerated. DISPOSITION: To home. STATUS WHILE IN THE HOSPITAL: Inpatient/fdc. CONDITION AT THE TIME OF DISCHARGE: Fair. Please keep in mind that this is a summarized version of this patient's hospital stay. If you need more information, please feel free to call me at or please obtain the full medical records. TIME SPENT: Approximately 45 minutes were spent to complete this discharge. [id number]/[facility] #: [id number] [facility]
== END 2018-04-22 14:40 | disposition home or self-care (01) | DRG 193 ==
LOC: ED 07:02 → MED 12:03 → OBSVTOIN 04-18 16:00 → INTOOBSV 04-19 11:06 → OBSVTOIN 04-19 11:06
PROVIDERS: ADMIT Internal Medicine; ATTEND Internal Medicine
DX: J18.9 Pneumonia, unspecified organism (principal); J96.01 Acute respiratory failure with hypoxia; J44.0 Chronic obstructive pulmonary disease with (acute) lower respiratory infection; H91.90 Unspecified hearing loss, unspecified ear; J44.1 Chronic obstructive pulmonary disease with (acute) exacerbation; H02.401 Unspecified ptosis of right eyelid; R00.0 Tachycardia, unspecified; G89.29 Other chronic pain; I10 Essential (primary) hypertension; Z85.840 Personal history of malignant neoplasm of eye; Z85.820 Personal history of malignant melanoma of skin; Z72.89 Other problems related to lifestyle; Z97.4 Presence of external hearing-aid; Z87.891 Personal history of nicotine dependence; Z82.49 Family history of ischemic heart disease and other diseases of the circulatory system
CPT/HCPCS: 36415; 71045; 80053; 83605; 83880; 84484; 85025; 85610; 86140; 87040; 87899; 93005; 94640; 99284; A9270-GY; G0378; G8978-GP-CH; G8979-GP-CH; G8980-GP-CH; G8987-GO-CH; G8988-GO-CH; G8989-GO-CH; J0456; J0696; J1644; J2920; J2930; J7512